=== PATIENT | female | born 1985 | race Caucasian/White ===

== ENCOUNTER 2023-01-02 09:06 | Day surgery (SDC) | payer BC, SELFPAY ==
[2023-01-02] VITALS (12 sets, daily range): BP systolic 102–123; BP diastolic 56–73; PULSE 81–121; RESP 16–18; TEMP 36.3–37.2; O2SAT 96–99; BMI 33.8; BMI 35.6
--- NOTE | 2023-01-02 09:56 | CRLHL7_ITS ---
For Patients: As a result of the 21st Century Cures Act, medical imaging exams and procedure reports are released immediately into your electronic medical record. You may view this report before your referring provider. If you have questions, please contact your health care provider. Indication: Right lower quadrant pain Technique: Volumetric multidetector CT images of the abdomen and pelvis were obtained after the administration of intravenous contrast. 91 cc Isovue 370 low osmolar intravenous contrast Comparison: None available. Findings: There is bibasilar atelectasis and parenchymal scar. The liver demonstrates minimal intrahepatic biliary ductal dilatation. There is no focal abnormality. The portal vein is patent. There is prior cholecystectomy. There is dilated common bile duct commensurate with reservoir changes. The spleen is normal in enhancement and size. The stomach and duodenum are grossly unremarkable. The pancreas is normal in enhancement without significant atrophy. The adrenal glands are unremarkable. The kidneys demonstrate preserved corticomedullary differentiation without evidence of obstructive uropathy. There are fluid-filled loops of mid to distal small bowel with mild to moderate mucosal hyperemia. There is fluid appreciated within the proximal colon with overall decompressed appearance of the distal colon. The appendix demonstrates no significant fluid distension and measures 6.3 millimeters. There is no significant periappendiceal inflammation; however, there is minimal inflammatory change seen adjacent to the cecum. There are extensive reactive central mesenteric and retroperitoneal lymph nodes. The aorta is nonaneurysmal. There is no significant atherosclerotic disease appreciated. The solid pelvic viscera are grossly unremarkable. There is no free fluid or free air. There is a fat containing umbilical hernia. The lumbar vertebral body heights are grossly maintained with mild straightening of the normal lumbar lordosis. There is no significant spondylolisthesis or displaced fracture. Impression: Demonstration of fluid-filled small bowel with mucosal hyperemia as well as fluid distension of the proximal colon which may represent infectious and/or inflammatory enterocolitis changes. There is demonstration of a somewhat equivocal appearing appendix with no evidence of fluid distension or significant thickening with trace inflammatory change which may be secondary from adjacent inflammatory changes of the bowel. An early appendicitis may be difficult to exclude. Extensive reactive central mesenteric and retroperitoneal lymph nodes. Findings discussed with Dr. Teague at 11:22 a.m. 01/02/[address] note that all CT scans at this facility use dose modulation, iterative reconstruction, and/or weight-based dosing when appropriate to reduce radiation dose to as low as reasonably achievable. Dictated by Jony Daniels MD @ 01/02/2023 11:23:05 AM (Electronically Signed)
--- NOTE | 2023-01-02 09:58 | ED_ITS ---
HPI - Abdominal Pain General Chief Complaint: Abdominal Pain Stated Complaint: Lower abdominal pain Time Seen by Provider: 01/02/23 09:51 History of Present Illness HPI narrative: This 37-year-old female comes in reporting abdominal pain for the past 3 or 4 days. She states that the pain is constant and is now localized in the right lower quadrant. She has some nausea and vomiting and has lost her appetite. She does not report any fevers. Her pain is worse with any kind of movement and somewhat relieved by remaining still. Related Data Previous Rx's Medication Instructions Recorded lorazepam 1 mg tablet 0.5 mg PO BID PRN anxiety #90 tabs 05/30/22 escitalopram oxalate 20 mg tablet 20 mg PO QDAY #90 tabs 12/25/22 naproxen 500 mg tablet 500 mg PO BID #180 tabs 12/25/22 valacyclovir 1 gram tablet 1,000 mg PO TID 5 days #30 tabs 12/25/22 zolpidem 5 mg tablet 5 mg PO QHS PRN insomnia #90 tabs 12/25/22 Allergies Allergy/AdvReac Type Severity Reaction Status Date / Time diphenhydramine Allergy Intermediate Rash Verified 01/02/23 10:24 [From Benadryl] bupropion AdvReac Intermediate Nausea Verified 01/02/23 10:24 Review of Systems Status of ROS Reports: 10 or more systems reviewed and unremarkable except as noted in History and below Narrative Constitutional: No fevers, no weight gain or loss. Eyes: No discharge. No vision changes. HENT: No congestion, no sore throat, no ear pain. Cardiovascular: No chest pain, no palpitations. Respiratory: No shortness of breath, no wheezes, no cough. Gastrointestinal: Right lower quadrant abdominal pain as described above. Genitourinary: No dysuria, no hematuria. Musculoskeletal: Normal range of motion. Skin: No rashes, no pruritis. Neurological: No dizziness, weakness, sensory change, speech change. Endo/Heme/Allergies: No bruising or bleeding. No polydipsia. Pysch: no suicidality, no anxiety, no insomnia. All other systems reviewed and are negative. [facility] Medical History (Updated 01/02/23 @ 13:57 by Rudy Teague MD) Cystic fibrosis carrier ?Z14.1 - Cystic fibrosis carrier (ICD-10) AAMIR (generalized anxiety disorder) ?F41.1 - Generalized anxiety disorder (ICD-10) History of anorexia nervosa ?Z86.59 - Personal history of other mental and behavioral disorders (ICD-10) History of bulimia nervosa ?Z86.59 - Personal history of other mental and behavioral disorders (ICD-10) History of herpes genitalis ?Z86.19 - Personal history of other infectious and parasitic diseases (ICD- 10) History of spontaneous (2018) ?Z87.59 - Personal history of other complications of , childbirth and the puerperium (ICD-10) Insomnia ?G47.00 - Insomnia, unspecified (ICD-10) Major depression, recurrent ?F33.9 - Major depressive disorder, recurrent, unspecified (ICD-10) Meniere's disease ?H81.09 - Meniere's disease, unspecified ear (ICD-10) Menorrhagia ?N92.0 - Excessive and frequent menstruation with regular cycle (ICD-10) PTSD (post-traumatic stress disorder) ?F43.10 - Post-traumatic stress disorder, unspecified (ICD-10) Surgical History (Updated 05/30/22 @ 22:14 by Alexander Vasquez MD) History of cholecystectomy (2013) ?Z90.49 - Acquired absence of other specified parts of digestive tract (ICD- 10) History of third molar tooth extraction (2004) ?K08.409 - Partial loss of teeth, unspecified cause, unspecified class (ICD- 10) History of tooth extraction (1998) ?K08.409 - Partial loss of teeth, unspecified cause, unspecified class (ICD- 10) History of vacuum extraction assisted delivery (2013) ?Z87.59 - Personal history of other complications of , childbirth and the puerperium (ICD-10) History of vaginal delivery (2015) Social History (Updated 12/31/22 @ 01:01 by Alexander Vasquez MD) Narrative: , three kids, Non-smoker Smoking Status: Former smoker Do you use any of these nicotine containing products: None Second hand tobacco smoke exposure: No How often do you have a drink containing alcohol: never How often do you have six or more drinks on one occasion: Never AUDIT-C Alcohol total score: 0 Non-prescribed substance use: denies use Little interest or pleasure in doing things: not at all Feeling down, depressed, or hopeless: not at all service: No Exam Narrative: Exam Narrative: Constitutional: Well-developed, well-nourished, no acute distress. HEENT: Normocephalic, atraumatic. Neck: Normal range of motion. Nontender. Supple. Heart: Regular. No murmurs. Normal rate. Intact distal pulses. Lungs: Clear to auscultation. No chest discomfort. No wheezes, rhonchi, or rales. Abdomen: Tenderness localized in the right lower quadrant. Rovsing's sign is positive. Rebound tenderness is present. Genitalia: Deferred. Back: No midline tenderness. Normal range of motion. Extremities: Normal range of motion. No injury. Skin: Intact. No rash. Warm. No erythema or pallor. Neurologic: No altered sensation. No weakness. Alert and oriented. Psychiatric: No suicidality. No anxiety or depression. No insomnia. Nursing notes and vitals signs are reviewed. Const: Vital Signs, click to edit/add: Vital Signs - 24 hr 01/02/23 09:15 Temperature 97.4 F L Pulse Rate [Left P ulse Oximeter] 121 H Respiratory Rate 18 Blood Pressure [Le ft Upper Arm] 116/73 Pulse Oximetry 99 Oxygen Delivery Me thod Room Air Course Vital Signs Vital signs: Initial Vital Signs Temperature 97.4 F L 01/02/23 09:15 Temperature Source Temporal Artery Scan 01/02/23 09:15 Pulse Rate 121 H 01/02/23 09:15 Pulse Rhythm Regular 01/02/23 09:15 Pulse Strength 3+ Normal 01/02/23 09:15 Respiratory Rate 18 01/02/23 09:15 Blood Pressure 116/73 01/02/23 09:15 Blood Pressure Mean 87 01/02/23 09:15 Blood Pressure Position Sitting 01/02/23 09:15 Pulse Oximetry 99 01/02/23 09:15 Oxygen Delivery Method Room Air 01/02/23 09:15 Vital Signs Temperature 97.4 F L 01/02/23 09:15 Pulse Rate 121 H 01/02/23 09:15 Respiratory Rate 18 01/02/23 09:15 Blood Pressure 116/73 01/02/23 09:15 Pulse Oximetry 99 01/02/23 09:15 Oxygen Delivery Method Room Air 01/02/23 09:15 Temperature 97.4 F L 01/02/23 09:15 Pulse Rate 121 H 01/02/23 09:15 Respiratory Rate 18 01/02/23 09:15 Blood Pressure 116/73 01/02/23 09:15 Pulse Oximetry 99 01/02/23 09:15 Oxygen Delivery Method Room Air 01/02/23 09:15 MDM - Abdominal Pain MDM Narrative Medical decision making narrative: This 37-year-old female has persistent right lower quadrant abdominal pain. She had enough signs and symptoms suspicious for appendicitis to where a CT scan of the abdomen and pelvis was ordered. This returns with a normal appearing appendix but adjacent to some reactive small-bowel with lymphadenopathy. Her white count returns a bit elevated. The patient did receive IV doses of Dilaudid and Zofran which brought some relief to her symptoms. I did consult with the surgeon on-call, Dr. Christy, who also examined the patient and reviewed images and discussed this with radiologist. It does appear to be an infectious or inflammatory small-bowel possibly due to Crohn's or some infectious process. I did speak with the hospitalist injection specialist who agreed to her admission. The patient did receive IV doses of Rocephin and Flagyl. A stool cultures also ordered with results pending. Lab Data Labs: Lab Results 01/02/23 Range/Units 09:50 WBC 14.02 H (4.50-11.00) K/uL RBC 5.03 (4.00-5.20) m/uL Hgb 14.4 (12.0-16.0) gm/dL Hct 42.6 (33.0-51.0) % MCV 85 (80-100) fL MCH 29 (26-34) pg MCHC 34 (32-36) gm/dL RDW Coeff of Ar 11.9 (11.5-15.5) % Plt Count 266 (140-440) K/uL Neut % (Auto) 85.8 H (42.0-72.0) % Lymph % (Auto) 5.1 L (20-44) % [place] % (Auto) 8.8 (0.0-11.0) % Eos % (Auto) 0.1 (0.0-7.0) % Baso % (Auto) 0.1 (0.0-3.0) % Neut # (Auto) 12.00 H (1.7-7.0) K/uL Lymph # (Auto) 0.70 L (0.90-2.90) K/uL [place] # (Auto) 1.20 H (0.00-0.90) K/UL Eos # (Auto) 0.00 (0.00-0.50) K/uL Baso # (Auto) 0.00 (0.00-0.30) K/uL Sodium 137 (135-149) mmol/L Potassium 3.5 L (3.6-5.1) mmol/L Chloride 105 (96-114) mmol/L Carbon Dioxide 24 (20-32) mmol/L BUN 15 (5-24) mg/dL Creatinine 0.6 (0.5-1.5) mg/dL Estimated Creat Clear 103.51 Estimated GFR 120 ml/min Glucose 107 (60-115) mg/dL Calcium 8.6 (8.4-10.6) mg/dL Imaging Data CT scan - abdomen: Radiologist's impression: Demonstration of fluid-filled small bowel with mucosal hyperemia as well as fluid distension of the proximal colon which may represent infectious and/or inflammatory enterocolitis changes. There is demonstration of a somewhat equivocal appearing appendix with no evidence of fluid distension or significant thickening with trace inflammatory change which may be secondary from adjacent inflammatory changes of the bowel. An early appendicitis may be difficult to exclude. Extensive reactive central mesenteric and retroperitoneal lymph nodes. Discharge Plan Discharge Clinical Impression: Colitis Patient Disposition: Admitted As Inpatient Condition: Unchanged Prescriptions: No Action lorazepam 1 mg tablet 0.5 mg PO BID PRN (Reason: anxiety) Qty: 90 1RF escitalopram oxalate 20 mg tablet 20 mg PO QDAY Qty: 90 3RF zolpidem 5 mg tablet 5 mg PO QHS PRN (Reason: insomnia) Qty: 90 1RF naproxen 500 mg tablet 500 mg PO BID Qty: 180 3RF valacyclovir 1 gram tablet 1,000 mg PO TID 5 Days Qty: 30 5RF Follow Up/Referrals: Alexander Vasquez MD [Primary Care Provider] -
[2023-01-02] MEDS: 0.9 % SODIUM CHLORIDE 500 ML 500 ML IV (10:08)
[2023-01-02] MEDS: ONDANSETRON 2 MG/ML inj 4 MG IVP (10:08)
[2023-01-02] MEDS: HYDROmorphone 0.5 mg/0.5 ml inj IVP ×3 (10:08→16:52)
[2023-01-02 10:19] LABS: Basophils Percent Auto 0.1 % (0.0-3.0); Eosinophils Percent Auto 0.1 % (0.0-7.0); Hematocrit 42.6 % (33.0-51.0); Hemoglobin* 14.4 gm/dL (12.0-16.0); Immature Granulocytes Pct Auto 0.1 %; Lymphocytes Percent Auto 5.1 % (20-44); Mean Corpuscular HGB Conc 34 gm/dL (32-36); Mean Corpuscular Hemoglobin 29 pg (26-34); Mean Corpuscular Volume 85 fL (80-100); Monocytes Percent Auto 8.8 % (0.0-11.0); Neutrophils Percent Auto 85.8 % (42.0-72.0); Platelet Count* 266 K/uL (140-440); RDW Coefficient of Variation % 11.9 % (11.5-15.5); Red Blood Count 5.03 m/uL (4.00-5.20); White Blood Count* 14.02 K/uL (4.50-11.00)
[2023-01-02 10:23] LABS: Slide Review Reflex No
[2023-01-02 10:42] LABS: Chloride* 105 mmol/L (96-114); Potassium* 3.5 mmol/L (3.6-5.1); Sodium* 137 mmol/L (135-149)
[2023-01-02 10:45] LABS: Blood Urea Nitrogen* 15 mg/dL (5-24); Carbon Dioxide* 24 mmol/L (20-32); Creatinine* 0.6 mg/dL (0.5-1.5); Est. Creatinine Clearance* 103.51; Estimated Glomerular Filt Rate 120 ml/min
[2023-01-02 10:46] LABS: Calcium* 8.6 mg/dL (8.4-10.6); Glucose* 107 mg/dL (60-115)
--- NOTE | 2023-01-02 13:57 | P.GSCN_ITS ---
History of Present Illness Consult details Date Seen: 01/02/23 Consult date: 01/02/23 Narrative: The patient is a 37-year-old female who presents to the emergency department today with abdominal pain. She states that last week several of her children were ill with gastroenteritis. She started vomiting on Saturday or 6 days ago and then began having diarrhea 4 days ago. On Saturday she developed abdominal pain in her central abdomen. This was 4 days ago. Today this pain is more centered in the right flank. She has not had anything like this before. It is worse with movement. No fevers. She has no known diagnosis of inflammatory bowel disease. She has not had any blood with her bowel movements. [facility] Medical History (Updated 01/02/23 @ 14:02 by Preethi Christy MD) Cystic fibrosis carrier ?Z14.1 - Cystic fibrosis carrier (ICD-10) AAMIR (generalized anxiety disorder) ?F41.1 - Generalized anxiety disorder (ICD-10) History of anorexia nervosa ?Z86.59 - Personal history of other mental and behavioral disorders (ICD-10) History of bulimia nervosa ?Z86.59 - Personal history of other mental and behavioral disorders (ICD-10) History of herpes genitalis ?Z86.19 - Personal history of other infectious and parasitic diseases (ICD- 10) History of spontaneous (2017) ?Z87.59 - Personal history of other complications of , childbirth and the puerperium (ICD-10) Insomnia ?G47.00 - Insomnia, unspecified (ICD-10) Major depression, recurrent ?F33.9 - Major depressive disorder, recurrent, unspecified (ICD-10) Meniere's disease ?H81.09 - Meniere's disease, unspecified ear (ICD-10) Menorrhagia ?N92.0 - Excessive and frequent menstruation with regular cycle (ICD-10) PTSD (post-traumatic stress disorder) ?F43.10 - Post-traumatic stress disorder, unspecified (ICD-10) Surgical History (Updated 05/30/22 @ 22:14 by Alexander Vasquez MD) History of cholecystectomy (2013) ?Z90.49 - Acquired absence of other specified parts of digestive tract (ICD- 10) History of third molar tooth extraction (2004) ?K08.409 - Partial loss of teeth, unspecified cause, unspecified class (ICD- 10) History of tooth extraction (1998) ?K08.409 - Partial loss of teeth, unspecified cause, unspecified class (ICD- 10) History of vacuum extraction assisted delivery (2013) ?Z87.59 - Personal history of other complications of , childbirth and the puerperium (ICD-10) History of vaginal delivery (2015) Social History (Updated 01/02/23 @ 14:00 by Preethi Christy MD) Narrative: , three kids, Non-smoker. She drinks alcohol rarely. She works as an business analyst project manager. Smoking Status: Former smoker Do you use any of these nicotine containing products: None Second hand tobacco smoke exposure: No How often do you have a drink containing alcohol: never How often do you have six or more drinks on one occasion: Never AUDIT-C Alcohol total score: 0 Non-prescribed substance use: denies use Little interest or pleasure in doing things: not at all Feeling down, depressed, or hopeless: not at all service: No Meds Home Medications and Allergies Allergies Allergy/AdvReac Type Severity Reaction Status Date / Time diphenhydramine Allergy Intermediate Rash Verified 01/02/23 10:24 [From Benadryl] bupropion AdvReac Intermediate Nausea Verified 01/02/23 10:24 Exam Narrative: Exam Narrative: General: Patient appears flushed, however in no acute distress CV: Mildly tachycardic with a heart rate of 100. She is regular. Respiratory: Breathing nonlabored on room air Abdomen: Protuberant. No scars. Small umbilical hernia noted. Is tender on the right mid abdomen with guarding. Const: Vital Signs, click to edit/add: Vital Signs - 24 hr 01/02/23 09:15 Temperature 97.4 F L Pulse Rate [Left P ulse Oximeter] 121 H Respiratory Rate 18 Blood Pressure [Le ft Upper Arm] 116/73 Pulse Oximetry 99 Oxygen Delivery Me thod Room Air Results Labs Labs: Abnormal lab results 01/02/23 Range/Units 09:50 WBC 14.02 H (4.50-11.00) K/uL Neut % (Auto) 85.8 H (42.0-72.0) % Lymph % (Auto) 5.1 L (20-44) % Neut # (Auto) 12.00 H (1.7-7.0) K/uL Lymph # (Auto) 0.70 L (0.90-2.90) K/uL [place] # (Auto) 1.20 H (0.00-0.90) K/UL Potassium 3.5 L (3.6-5.1) mmol/L Diabetes panel 01/02/23 Range/Units 09:50 Sodium 137 (135-149) mmol/L Potassium 3.5 L (3.6-5.1) mmol/L Chloride 105 (96-114) mmol/L Carbon Dioxide 24 (20-32) mmol/L BUN 15 (5-24) mg/dL Creatinine 0.6 (0.5-1.5) mg/dL Glucose 107 (60-115) mg/dL Calcium 8.6 (8.4-10.6) mg/dL Calcium panel 01/02/23 Range/Units 09:50 Calcium 8.6 (8.4-10.6) mg/dL Pituitary panel 01/02/23 Range/Units 09:50 Sodium 137 (135-149) mmol/L Potassium 3.5 L (3.6-5.1) mmol/L Chloride 105 (96-114) mmol/L Carbon Dioxide 24 (20-32) mmol/L BUN 15 (5-24) mg/dL Creatinine 0.6 (0.5-1.5) mg/dL Glucose 107 (60-115) mg/dL Calcium 8.6 (8.4-10.6) mg/dL Adrenal panel 01/02/23 Range/Units 09:50 Sodium 137 (135-149) mmol/L Potassium 3.5 L (3.6-5.1) mmol/L Chloride 105 (96-114) mmol/L Carbon Dioxide 24 (20-32) mmol/L BUN 15 (5-24) mg/dL Creatinine 0.6 (0.5-1.5) mg/dL Glucose 107 (60-115) mg/dL Calcium 8.6 (8.4-10.6) mg/dL All other labs normal. Imaging Abdomen CT scan report/results: report reviewed and image reviewed Additional studies: CT scan of the abdomen was reviewed by myself and with the radiologist. The patient has transmural thickening of the distal small bowel as well as extensive retroperitoneal adenopathy. Her appendix is located in the area where she is having discomfort and there is some mild fluid around this, however it is not dilated. There is no appendicolith and there is also air in the lumen. While early appendicitis cannot be excluded, symptoms appear more consistent with enterocolitis or inflammatory colitis Assessment and Plan Assessment and plan (1) Colitis: Status: Acute (2) Enteritis: Status: Acute (3) Diarrhea: Status: Acute Plan The patient is a 37-year-old female with nausea, vomiting, diarrhea and abdominal pain. On exam she has tenderness on the right side at the location of the appendix, however based on her history it seems more consistent with enteritis verses possibly even inflammatory bowel disease, particularly given the degree of adenopathy which, in the setting appendicitis is usually located in the right lower abdomen. There is no appendicolith seen on imaging. I discussed the findings with the patient and her . Because she is non perforated, does not have peritonitis and is not septic, I think it is reasonable to admit the patient, obtain stool cultures and start her on antibiotics. If she does have appendicitis, non operative management has been proven to be safe in patients under these conditions. She therefore may resolve with medical management. If her symptoms worsen, then we will re- evaluate the situation and consider either repeat imaging or diagnostic laparoscopy with plan for appendectomy. If she improves then she could be discharged home on oral antibiotics. The patient is agreeable with this plan.
[2023-01-02] MEDS: cefTRIAXone 1 GM in 0.9 % SODIUM CHLORIDE Mini-bag 100 ML IVPB (14:04)
[2023-01-02 14:20] LABS: PCR FLU A Negative PCR FLU A (Negative); PCR FLU B Negative PCR FLU B (Negative); PCR RSV Negative PCR RSV (Negative)
[2023-01-02 14:28] LABS: SARS PCR* Negative SARS-CoV-2 (Negative)
[2023-01-02] MEDS: metroNIDAZOLE 500 MG/100 ML PIGGYBACK 100 MG IVPB (15:05)
[2023-01-02] MEDS: ACETAMINOPHEN 325 MG TABLET 650 MG PO ×2 (16:52→20:50)
[2023-01-02] MEDS: ESCITALOPRAM 10 MG TABLET 20 MG PO (16:52)
--- NOTE | 2023-01-02 18:28 | PM.IMHP1 ---
Hospitalist- H&P: HPI History of Present Illness Time Seen by Provider: 16:00 Date Seen: 01/02/23 Chief complaint: Lower abdominal pain Narrative: Sera Hurst is a 37 year old woman who presents for assessment of abdominal pain. Patient was in her usual state of health until this past Saturday, 5 days ago. That time were stomach started to feel queasy. Had some nausea without vomiting. Has had intermittent vomiting since. Developed diarrhea on Saturday. Abdominal pain became very pronounced this morning, did not resolve, and thus she presents for further assessment. Denies fevers, rigors, diaphoresis. Denies hematochezia, melena, hematemesis. No recent night sweats or weight loss. Noteworthy is the fact that all 3 of her children earlier last week had ?the stomach flu. ? Children had nausea, vomiting and diarrhea as well. Review of Systems Status of ROS: Reports: 10 or more systems reviewed and unremarkable except as noted in History and below Narrative: Generally healthy. No recent trauma, injury, or travel. No other recent illnesses. Denies chest heaviness, pressure, tightness, or pain. Denies dyspnea at rest, paroxysmal nocturnal dyspnea, orthopnea, or cough. Denies upper respiratory tract or lower respiratory tract symptoms. Denies syncope or near-syncope. Denies orthostasis. Denies palpitations or chest fluttering. No claudication. Denies dysuria, urgency, frequency, hematuria. Denies polyuria, polydipsia, polyphagia. No focal motor neurologic deficits. 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 Lives with her and [address] Alexander Vasquez is her primary care physician. [facility] Medical History Cystic fibrosis carrier ?Z14.1 - Cystic fibrosis carrier (ICD-10) AAMIR (generalized anxiety disorder) ?F41.1 - Generalized anxiety disorder (ICD-10) History of anorexia nervosa ?Z86.59 - Personal history of other mental and behavioral disorders (ICD-10) History of bulimia nervosa ?Z86.59 - Personal history of other mental and behavioral disorders (ICD-10) History of herpes genitalis ?Z86.19 - Personal history of other infectious and parasitic diseases (ICD-10) History of spontaneous (2018) ?Z87.59 - Personal history of other complications of , childbirth and the puerperium (ICD-10) Insomnia ?G47.00 - Insomnia, unspecified (ICD-10) Major depression, recurrent ?F33.9 - Major depressive disorder, recurrent, unspecified (ICD-10) Meniere's disease ?H81.09 - Meniere's disease, unspecified ear (ICD-10) Menorrhagia ?N92.0 - Excessive and frequent menstruation with regular cycle (ICD-10) PTSD (post-traumatic stress disorder) ?F43.10 - Post-traumatic stress disorder, unspecified (ICD-10) Surgical History History of cholecystectomy (2013) ?Z90.49 - Acquired absence of other specified parts of digestive tract (ICD-10) History of third molar tooth extraction (2004) ?K08.409 - Partial loss of teeth, unspecified cause, unspecified class (ICD-10) History of tooth extraction (1998) ?K08.409 - Partial loss of teeth, unspecified cause, unspecified class (ICD-10) History of vacuum extraction assisted delivery (2013) ?Z87.59 - Personal history of other complications of , childbirth and the puerperium (ICD-10) History of vaginal delivery (2015) Social History Narrative: , three kids, Non-smoker. She drinks alcohol rarely. She works as an visual presentation manager. Highest level of school completed/degree received: some college, no degree Smoking Status: Former smoker Do you use any of these nicotine containing products: None Second hand tobacco smoke exposure: No How often do you have a drink containing alcohol: never How often do you have six or more drinks on one occasion: Never AUDIT-C Alcohol total score: 0 Non-prescribed substance use: denies use Caffeine: Yes () Little interest or pleasure in doing things: not at all Feeling down, depressed, or hopeless: not at all service: Yes Meds Home Medications and Allergies Home Medications Medication Instructions Recorded Confirmed Type valacyclovir 1 gram tablet 2,000 mg PO TID 01/02/23 01/02/23 History zolpidem 5 mg tablet 5 mg PO HS PRN insomnia 01/02/23 01/02/23 History Home Medication Comments: Additional medications: 1. Lorazepam 1 mg tab, 1/2 tab p.o. at at bedtime and 1/2 tab daily p.r.n. which he orally ever uses. 2. Escitalopram 20 mg once daily 3. Naproxen 500 mg twice daily usually around the time of her menses. Allergies Allergy/AdvReac Type Severity Reaction Status Date / Time diphenhydramine Allergy Intermediate Rash Verified 01/02/23 10:24 [From Benadryl] bupropion AdvReac Intermediate Nausea Verified 01/02/23 10:24 Exam Narrative: Exam Narrative: By the time I see her she appears comfortable. No acute distress. Alert, oriented to self, place, time, situation. Friendly, cooperative, articulate. Mood and affect are congruent. Vision and hearing are grossly normal. No icterus or jaundice. Normal tympanic membranes. Midline nasal septum. Buccal mucosa is moist. Dentition in good repair. Neck is supple. Midline trachea. No adenopathy. Lungs are clear to auscultation, without wheezing, rhonchi, or rales. Does not have CVA tenderness. Regular heart rate and rhythm. Normal S1-S2. No murmur, gallop, or rub. Abdomen with active bowel sounds, soft. Subjective discomfort to palpation left lower quadrant. Independent transfer, station, gait. No focal motor neurologic deficits. No peripheral edema. Capillary refill less than 3 seconds upper and lower extremities. Const: Vital Signs, click to edit/add: Vital Signs - 24 hr 01/02/23 09:15 01/02/23 09:10 01/02/23 10:05 Temperature 97.4 F L 97.4 F L Pulse Rate [Left P ulse Oximeter] 121 H 121 H Pulse Rate [Right Pulse Oximeter] Respiratory Rate 18 18 18 Blood Pressure [Le ft Arm] Blood Pressure [Le ft Upper Arm] 116/73 116/73 117/69 Pulse Oximetry 99 99 99 Oxygen Delivery Me thod Room Air Room Air Room Air 01/02/23 10:38 01/02/23 11:00 01/02/23 11:30 Temperature Pulse Rate [Left P ulse Oximeter] Pulse Rate [Right Pulse Oximeter] Respiratory Rate 18 18 18 Blood Pressure [Le ft Arm] Blood Pressure [Le ft Upper Arm] 116/58 L 112/56 L 114/58 L Pulse Oximetry 99 99 99 Oxygen Delivery Me thod Room Air Room Air Room Air 01/02/23 12:00 01/02/23 12:30 01/02/23 13:00 Temperature Pulse Rate [Left P ulse Oximeter] Pulse Rate [Right Pulse Oximeter] Respiratory Rate 18 18 18 Blood Pressure [Le ft Arm] Blood Pressure [Le ft Upper Arm] 108/60 113/64 123/64 Pulse Oximetry 99 99 99 Oxygen Delivery Me thod Room Air Room Air Room Air 01/02/23 15:10 Temperature 98.4 F Pulse Rate [Left P ulse Oximeter] Pulse Rate [Right Pulse Oximeter] 92 Respiratory Rate 16 Blood Pressure [Le ft Arm] 108/59 L Blood Pressure [Le ft Upper Arm] Pulse Oximetry 96 Oxygen Delivery Me thod Room Air Hospitalist - H&P: Result Labs Labs: Short CBC 01/02/23 Range/Units 09:50 WBC 14.02 H (4.50-11.00) K/uL Hgb 14.4 (12.0-16.0) gm/dL Hct 42.6 (33.0-51.0) % Plt Count 266 (140-440) K/uL BMP 01/02/23 09:50 Sodium 137 Potassium 3.5 L Chloride 105 Carbon Dioxide 24 BUN 15 Creatinine 0.6 Glucose [address] scan - abdomen: Attestation: I have reviewed the pertinent imaging results. Radiologist's impression: Demonstration of fluid-filled small bowel with mucosal hyperemia as well as fluid distension of the proximal colon which may represent infectious and/or inflammatory enterocolitis changes. There is demonstration of a somewhat equivocal appearing appendix with no evidence of fluid distension or significant thickening with trace inflammatory change which may be secondary from adjacent inflammatory changes of the bowel. An early appendicitis may be difficult to exclude. Extensive reactive central mesenteric and retroperitoneal lymph nodes. Assessment and Plan Assessment and plan (1) Enteritis: Status: Acute (2) Colitis: Status: Acute (3) Diarrhea: Status: Acute Plan 1. Explained to the patient how most likely her condition is related to the same infection that her children recently had. As such we anticipate that this is most likely caused by a virus. Nevertheless the severity of her symptoms warrants that she be admitted for observation at this time. 2. Supportive measures with IV fluids, analgesics, antiemetics p.r.n.. 3. Continue with other supportive efforts. 4. Daily weight, orthostatic blood pressures and pulses. 5. Reassess labs. 6. Patient agreeable to above stated plans and recommendations
--- NOTE | 2023-01-02 18:59 | PC.NURSE ---
End of shift nursing note: Pt admit at 1445 from ED. Pt ambulatory from ED EC to scale to bed. Ind w/o device at baseline. Pt c/o 5/10 pain to RLQ of abd. Pt voided x2 since admission, still requiring stool sample, pt aware, hat in place in toilet. Vitals stable, on RA. Heating pad applied to abd with effectiveness. Scheduled meds admin w/ water, PRN IV Dilaudid admin for pain, spoke to pt about transitioning to PO when able for pain control PRN. YUDI peña applied BLE, pt wanted to hold off on SCDs for now, up to bathroom ind, ankle pumps encouraged while in bed. On clear liquid diet currently w/ advance as tolerated, pt starting slow as recent N/V prior to admission. IV to R AC patent, Flagyl admin upon admission per order, saline locked after. Call light within pt reach, able to verbalize all needs appropriately. ?
[2023-01-02] MEDS: POTASSIUM CHLORIDE 10 MEQ CAPSULE ER 40 MEQ PO (19:03)
[2023-01-02] MEDS: OXYCODONE 5 MG TABLET PO (20:49)
[2023-01-02] MEDS: SODIUM CHLORIDE 0.9 % (FLUSH) 10 ML SYRINGE 5 ML IVF (21:06)
[2023-01-03] VITALS (22 sets, daily range): BP systolic 83–116; BP diastolic 52–89; PULSE 49–94; RESP 12–16; TEMP 36.4–37.2; O2SAT 88–100
[2023-01-03] MEDS: ACETAMINOPHEN 325 MG TABLET 650 MG PO ×3 (02:36→21:17)
[2023-01-03] MEDS: OXYCODONE 5 MG TABLET PO ×4 (02:38→14:59)
[2023-01-03 07:51] LABS: Lactate* 0.9 mmol/L (0.5-1.9)
[2023-01-03 07:58] LABS: Basophils Percent Auto 0.2 % (0.0-3.0); Eosinophils Percent Auto 0.9 % (0.0-7.0); Hematocrit 41.1 % (33.0-51.0); Hemoglobin* 13.4 gm/dL (12.0-16.0); Lymphocytes Percent Auto 29.7 % (20-44); Mean Corpuscular HGB Conc 33 gm/dL (32-36); Mean Corpuscular Hemoglobin 29 pg (26-34); Mean Corpuscular Volume 87 fL (80-100); Monocytes Percent Auto 13.3 % (0.0-11.0); Neutrophils Percent Auto 55.9 % (42.0-72.0); Platelet Count* 232 K/uL (140-440); RDW Coefficient of Variation % 12.1 % (11.5-15.5); White Blood Count* 4.37 K/uL (4.50-11.00)
[2023-01-03 08:04] LABS: Slide Review Reflex Yes
[2023-01-03 08:05] LABS: Slide Review Acceptable Review (Acceptable)
[2023-01-03 08:15] LABS: Chloride* 106 mmol/L (96-114); Potassium* 3.9 mmol/L (3.6-5.1); Sodium* 137 mmol/L (135-149)
[2023-01-03 08:17] LABS: Creatinine* 0.5 mg/dL (0.5-1.5); Est. Creatinine Clearance* 124.21; Estimated Glomerular Filt Rate 125 ml/min
[2023-01-03 08:18] LABS: Blood Urea Nitrogen* 10 mg/dL (5-24); Calcium* 8.4 mg/dL (8.4-10.6); Carbon Dioxide* 28 mmol/L (20-32); Glucose* 88 mg/dL (60-115); Phosphorus* 2.3 mg/dL (2.5-4.5)
[2023-01-03 08:19] LABS: Magnesium* 2.2 mg/dL (1.5-2.6)
[2023-01-03] MEDS: SODIUM CHLORIDE 0.9 % (FLUSH) 10 ML SYRINGE 5 ML IVF (09:11)
--- NOTE | 2023-01-03 09:38 | PM.GSPN ---
Subjective Subjective Date Seen: 01/03/23 Interval history: Sera is feeling much better. Has not had further diarrhea. No nausea. Pain is down to a 3 though she has gotten pain medications. No fevers. Eating breakfast without issue. Exam Narrative: Exam Narrative: General: NAD Abdomen: soft, mildly tender on the right midabdomen still. No guarding or rebound. Const: Vital Signs, click to edit/add: Vital Signs - 24 hr 01/02/23 10:05 01/02/23 10:38 01/02/23 11:00 Temperature Pulse Rate [Right Pulse Oximeter] Respiratory Rate 18 18 18 Blood Pressure [Le ft Arm] Blood Pressure [Le ft Upper Arm] 117/69 116/58 L 112/56 L Pulse Oximetry 99 99 99 Oxygen Delivery Me thod Room Air Room Air Room Air 01/02/23 11:30 01/02/23 12:00 01/02/23 12:30 Temperature Pulse Rate [Right Pulse Oximeter] Respiratory Rate 18 18 18 Blood Pressure [Le ft Arm] Blood Pressure [Le ft Upper Arm] 114/58 L 108/60 113/64 Pulse Oximetry 99 99 99 Oxygen Delivery De thod Room Air Room Air Room Air 01/02/23 13:00 01/02/23 15:10 01/02/23 20:45 Temperature 98.4 F 98.9 F Pulse Rate [Right Pulse Oximeter] 92 81 Respiratory Rate 18 16 16 Blood Pressure [Le ft Arm] 108/59 L 102/62 Blood Pressure [Le ft Upper Arm] 123/64 Pulse Oximetry 99 96 96 Oxygen Delivery De thod Room Air Room Air 01/02/23 23:00 01/02/23 23:00 01/02/23 23:00 Temperature Pulse Rate [Right Pulse Oximeter] 81 Respiratory Rate 16 16 16 Blood Pressure [Le ft Arm] Blood Pressure [Le ft Upper Arm] Pulse Oximetry 96 Oxygen Delivery De thod Room Air Room Air 01/03/23 03:00 01/03/23 07:00 01/03/23 07:00 Temperature 98.2 F 97.9 F Pulse Rate [Right Pulse Oximeter] 68 64 Respiratory Rate 16 16 Blood Pressure [Le ft Arm] 107/62 89/67 L Blood Pressure [Le ft Upper Arm] Pulse Oximetry 96 99 99 Oxygen Delivery De thod Room Air Room Air Room Air Labs/Imaging Labs Labs: Wbc 4.3. from 12 Progress Note: A&P Assessment and plan (1) Enteritis: Status: Acute (2) Diarrhea: Status: Acute (3) Abdominal pain: Status: Acute Plan Sera is a 37-year-old female that is in the hospital with diarrhea, vomiting and CT findings of bowel thickening with right lower quadrant pain. The most likely culprit is enteritis as her family has recently been ill, however early appendicitis remains in the differential given her right-sided pain. -antibiotics were not continued overnight and the patient seems to have improved regardless. -she is now tolerating a diet. -I think it is reasonable to discharge her home. Since she has not been on antibiotics he is likely do not have to be continued, however consideration could be given for oral Cipro Flagyl for 1 week.
[2023-01-03] MEDS: ONDANSETRON ODT 4 MG TAB PO (11:05)
--- NOTE | 2023-01-03 11:24 | P.DS_ITS ---
DS: Providers Provider Date Seen: 01/03/23 Date of admission: 01/02/23 14:40 Primary care physician: Alexander Vasquez MD Admitting Clinician: Ollie Ellis MD Consults: General Surgery Attending Physician on discharge: Eveline Vargas MD Date of Discharge: 01/03/23 DS: Diagnosis Discharge Diagnosis (1) Enteritis: Status: Acute (2) Diarrhea: Status: Acute (3) Abdominal pain: Status: Acute DS: Summary Hospital Course Hospital Course: 37-year-old female, presented to the emergency room on 01/02 for right lower quadrant abdominal pain. CT exam in the emergency room exhibited enteritis without signs of acute appendicitis (of note, patient recently had children with GI illness). Sera improved throughout stay, was able to advance her diet. Time Spent with Patient Time attestation: Total time spent providing and/or coordinating discharge services: Exam Const: Vital Signs, click to edit/add: Vital Signs - 24 hr 01/02/23 11:30 01/02/23 12:00 01/02/23 12:30 Temperature Pulse Rate [Right Pulse Oximeter] Respiratory Rate 18 18 18 Blood Pressure [Le ft Arm] Blood Pressure [Le ft Upper Arm] 114/58 L 108/60 113/64 Pulse Oximetry 99 99 99 Oxygen Delivery Me thod Room Air Room Air Room Air 01/02/23 13:00 01/02/23 15:10 01/02/23 20:45 Temperature 98.4 F 98.9 F Pulse Rate [Right Pulse Oximeter] 92 81 Respiratory Rate 18 16 16 Blood Pressure [Le ft Arm] 108/59 L 102/62 Blood Pressure [Le ft Upper Arm] 123/64 Pulse Oximetry 99 96 96 Oxygen Delivery Me thod Room Air Room Air 01/02/23 23:00 01/02/23 23:00 01/02/23 23:00 Temperature Pulse Rate [Right Pulse Oximeter] 81 Respiratory Rate 16 16 16 Blood Pressure [Le ft Arm] Blood Pressure [Le ft Upper Arm] Pulse Oximetry 96 Oxygen Delivery Me thod Room Air Room Air 01/03/23 03:00 01/03/23 07:00 01/03/23 07:00 Temperature 98.2 F 97.9 F Pulse Rate [Right Pulse Oximeter] 68 64 Respiratory Rate 16 16 Blood Pressure [Le ft Arm] 107/62 89/67 L Blood Pressure [Le ft Upper Arm] Pulse Oximetry 96 99 99 Oxygen Delivery Me thod Room Air Room Air Room Air DS: Data Data Completed and Pending Labs on day of discharge: Labs from last 24 hours 01/03/23 01/02/23 07:45 13:08 WBC 4.37 L RBC 4.70 Hgb 13.4 Hct 41.1 MCV 87 MCH 29 MCHC 33 RDW Coeff of Ar 12.1 Plt Count 232 Neut % (Auto) 55.9 Lymph % (Auto) 29.7 [place] % (Auto) 13.3 H Eos % (Auto) 0.9 Baso % (Auto) 0.2 Neut # (Auto) 2.40 Lymph # (Auto) 1.30 [place] # (Auto) 0.60 Eos # (Auto) 0.00 Baso # (Auto) 0.00 Diff Slide Review Acceptable Review Sodium 137 Potassium 3.9 Chloride 106 Carbon Dioxide 28 BUN 10 Creatinine 0.5 Estimated Creat Clear 124.21 Estimated GFR 125 Glucose 88 Lactate 0.9 Calcium 8.4 Phosphorus 2.3 L Magnesium 2.2 SARS-CoV-2 (PCR) Negative SARS-CoV-2 Influenza Type A (PCR) Negative PCR FLU A Influenza Type B (PCR) Negative PCR FLU B RSV (PCR) Negative PCR RSV Discharge Plan Discharge Disposition: Home, Self-Care Date of Admission: 01/02/23 14:40 Attending Provider on Discharge: Eveline Vargas Consulting Providers: Preethi Christy Primary Care Provider: Alexander Vasquez Condition: Improved Anticipated Discharge Date/Time: 01/03/23 12:30 Discharge Medications: Continued lorazepam 1 mg tablet 0.5 mg PO BID PRN (Reason: anxiety) Qty: 90 1RF escitalopram oxalate 20 mg tablet 20 mg PO QDAY Qty: 90 3RF naproxen 500 mg tablet 500 mg PO BID Qty: 180 3RF valacyclovir 1 gram tablet 2,000 mg PO TID zolpidem 5 mg tablet 5 mg PO HS PRN (Reason: insomnia) Discharge Orders: Discharge Order (Routine); Ordered 01/03/23 Ordered By: Eveline Vargas Patient Education: Enteritis (DC) Additional Instructions: No work until Saturday, January 07 Activity Level: Activity as Tolerated and No strenuous activity Discharge Diet: Low Fiber Diet Detail: Low fiber, advance as tolerated Follow Up Appointments: Alexander Vasquez MD [Primary Care Provider] - (as needed) Forms: [employer] Info Instructions
--- NOTE | 2023-01-03 12:29 | CRLHL7_ITS ---
For Patients: As a result of the Century Cures Act, medical imaging exams and procedure reports are released immediately into your electronic medical record. You may view this report before your referring provider. If you have questions, please contact your health care provider. INDICATION: PERSISTENT AND WORSENING RLQ PAIN TECHNIQUE: CT abdomen and pelvis acquired with 91 cc Isovue 370 IV contrast. COMPARISON: CT previous day. FINDINGS: Lower chest: The visualized lower lungs are aerated. No pleural or pericardial effusion. ABDOMEN: Liver: Normal enhancement. No focal suspicious hepatic lesions. Gallbladder and biliary: Cholecystectomy. Normal caliber bile ducts. Spleen: Normal size and enhancement. Pancreas: Normal enhancement without peripancreatic inflammatory changes or ductal dilatation. Adrenal glands: Normal adrenal glands. Kidneys and ureters: Normal enhancement. No radio-opaque calculi. No hydroureteronephrosis. GI tract: The stomach is relatively decompressed. Normal caliber small and large bowel loops. Mild hyperemia the appendix with questionable adjacent minimal inflammatory stranding and measuring up to 10 millimeters wide. Vascular structures: Normal caliber abdominal aorta. Lymph nodes: Prominent periaortic lymph nodes do not meet criteria for enlargement. Peritoneum: Small amount of free fluid in the pelvis as well as trace amount of fluid along the right pericolic gutter. No free air or focal drainable fluid collections. PELVIS: Genitourinary system: Normal urinary bladder. Age-appropriate uterus and ovaries. SKELETAL STRUCTURES AND SOFT TISSUES: No suspicious lytic or blastic lesions. IMPRESSION: Mild hyperemia of the appendix with questionable adjacent minimal inflammatory stranding and measuring up to 10 millimeters wide. While findings are equivocal, this raises the possibility for acute appendicitis. Recommend correlation with laboratory values and dedicated localized physical exam. Please note that all CT scans at this facility use dose modulation, iterative reconstruction, and/or weight-based dosing when appropriate to reduce radiation dose to as low as reasonably achievable. Dictated by Alexander Dotson MD @ 01/03/2023 3:10:09 PM (Electronically Signed)
[2023-01-03] MEDS: PROMETHAZINE 25 MG/ML INJ 12.5 MG IVP (14:48)
--- NOTE | 2023-01-03 15:30 | PM.IMPN1 ---
Progress Note: A&P Assessment and plan (1) Abdominal pain: Problem details: - as symptoms have evolved, repeat imaging c/w acute appendicitis - patient aware, made NPO - reviewed with Dr. Christy of General Surgery Status: Acute Plan - plan per GS team Subjective Date Seen: 01/03/23 Interval history: Sera felt better this morning, began to advance her diet. She then noted more discomfort in her umbilicus and right lower quadrant, stopped passing flatus, and had an increase in her nausea. Repeat CT scan obtained, exhibiting more edema in the appendix. Exam Narrative: Exam Narrative: GEN: Alert HEENT: Normal external ears, EOMIs bilaterally, no scleral icterus CV: RRR, No concerning murmurs R: LCTA bilaterally without concerning wheezing, rales, or rhonchi Ab: Soft without significant distension, + tenderness to palpation in right lower quadrant with mild guarding, no rebound Ext: wwp, no concerning edema Skin: No concerning skin lesions or rashes on exposed skin Neuro: Nonfocal Psych: Appropriate Const: Vital Signs, click to edit/add: Vital Signs - 24 hr 01/02/23 20:45 01/02/23 23:00 01/02/23 23:00 Temperature 98.9 F Pulse Rate [Right Pulse Oximeter] 81 81 Respiratory Rate 16 16 16 Blood Pressure [Le ft Arm] 102/62 Pulse Oximetry 96 96 Oxygen Delivery Me thod Room Air 01/02/23 23:00 01/03/23 03:00 01/03/23 07:00 Temperature 98.2 F Pulse Rate [Right Pulse Oximeter] 68 Respiratory Rate 16 16 Blood Pressure [Le ft Arm] 107/62 Pulse Oximetry 96 99 Oxygen Delivery Me thod Room Air Room Air Room Air 01/03/23 07:00 01/03/23 11:00 01/03/23 12:19 Temperature 97.9 F 98.4 F 98.4 F Pulse Rate [Right Pulse Oximeter] 64 66 Respiratory Rate 16 16 16 Blood Pressure [Le ft Arm] 89/67 L 110/64 Pulse Oximetry 99 98 Oxygen Delivery Me thod Room Air Room Air Labs Labs: Laboratory Results - last 24 hr 01/03/23 07:45 WBC 4.37 L RBC 4.70 Hgb 13.4 Hct 41.1 MCV 87 MCH 29 MCHC 33 RDW Coeff of Ar 12.1 Plt Count 232 Neut % (Auto) 55.9 Lymph % (Auto) 29.7 [place] % (Auto) 13.3 H Eos % (Auto) 0.9 Baso % (Auto) 0.2 Neut # (Auto) 2.40 Lymph # (Auto) 1.30 [place] # (Auto) 0.60 Eos # (Auto) 0.00 Baso # (Auto) 0.00 Diff Slide Review Acceptable Review Sodium 137 Potassium 3.9 Chloride 106 Carbon Dioxide 28 BUN 10 Creatinine 0.5 Estimated Creat Clear 124.21 Estimated GFR 125 Glucose 88 Lactate 0.9 Calcium 8.4 Phosphorus 2.3 L Magnesium 2.2
--- NOTE | 2023-01-03 16:36 | P.EN_ITS ---
Chart Event Note Chart Event Note: Sera was getting ready for discharge and was having quite a bit of pain. Because of this her CT scan was repeated. Appendix appears more dilated. Also importantly, her small bowel now appears normal. She has not had any further diarrhea since admission. Discussed the situation with the patient and her . I explained that very likely she was recovering from gastroenteritis and developed acute appendicitis, however the CT scan was equivocal initially. I think the best course of action is to proceed with appendectomy. This can most often be done laparoscopically. We discussed risks and benefits of the procedure including but not limited to bleeding, need for conversion to open, ri sk of injury to other structures, need for possible bowel resection, and abscess formation. The patient understands that the risk of abscess is higher if the appendix is perforated. For that reason, we generally keep patient is in the hospital on IV antibiotics until vital signs and white blood cell count had normalized. We also discussed recovery including 2 weeks of lifting restrictions. She is agreeable to proceed and we will plan on surgery urgently. She last ate greater than 5 hours ago and vomited afterwards.
[2023-01-03] MEDS: BUPIVACAINE 0.25% 30 ML INJECTION (17:16)
--- NOTE | 2023-01-03 18:09 | P.GSOP_ITS ---
Operative Note Date of procedure: 01/03/23 Pre-op diagnosis: Acute appendicitis Post-op diagnosis: Same Type of Procedure: Laparoscopic appendectomy Indications: The patient is a 37-year-old female who presented to the emergency department with recent history of gastroenteritis and right-sided abdominal pain. CT scan was initially equivocal for appendicitis and appeared more consistent with enteritis. The patient initially improved and then her pain worsened on hospital day 2 and therefore a repeat CT scan was pursued. This scan was more consistent with acute appendicitis. Because of this I recommended appendectomy and the patient agreed to proceed. Procedure Description: After discussing the risks and benefits of the procedure, the patient signed informed consent.? The operative site was marked and the patient was brought to the operating room and placed on the operating table in supine position.? Care was taken to pad the patient's pressure points.?? The patient was then intubated by anesthesia.?? The operative site was then prepped and draped in the usual sterile fashion.? A time-out was then performed. Entrance to the abdomen was obtained via a 5 mm optical trocar in the left upper quadrant. The abdomen was insufflated and briefly surveyed for any signs of injury. There were none. A 12 mm port was placed inferior to the umbilicus as well as a 5 mm port in the left lower quadrant. Both were done under direct vision. The patient was then placed in Trendelenburg position with the right s dann up. The small bowel was gently moved out of the way and the appendix was in view. A small amount of dissection was necessary to free the appendix from the surrounding pelvic attachments. The appendix was grasped and pulled into view. The appendix was inflamed and dilated however it was not perforated. There was only a small amount of serous fluid in the pelvis. A mesenteric window was crea noble between the base of the appendix and the mesoappendix. An Endo-SHELL purple load stapler was then used to transect the appendix at its base. A vascular load stapler was then used to divide the mesoappendix. The staple lines were inspected for bleeding. There was none initially, however, after the appendix was removed from the abdomen using an Endo-Catch bag there was some clot noted around the staple line. This was suctioned away and a clip was used just to reinforce the staple line and ensure hemostasis. This did appear adequate. The 12 mm port site fascia was closed with 0 Vicryl using a Esteban-Velasquez device. The abdomen was desufflated and the ports were then removed. The skin was then closed with absorbable subcuticular suture. Sterile dressings were then applied. Instrument sponge and needle counts were correct at the end of the case. The patient was then woken and transported to the PACU in stable condition. ? The patient tolerated the procedure well. Findings: Acute non perforated appendicitis Anesthesia: GETA Surgeon: Preethi Christy MD Estimated blood loss (mL): 10 Specimen: Appendix Condition: stable Disposition: PACU
--- NOTE | 2023-01-03 18:10 | P.ANES_ITS ---
Anesthesia Charges Start Date/Time Anesthesia Start Date: 01/03/23 Anesthesia Start Time: 16:51 Stop Date/Time Anesthesia Stop Date: 01/03/23 Anesthesia Stop Time: 18:07 Summary Emergency: ORDNANCE TECHNICIAN
--- NOTE | 2023-01-03 18:11 | PC.NURSE ---
Patient alert and oriented x 3. Lung sounds clear, bowel sounds active x 4 quadrants. Patient reports pain to right lower lateral side, pain increases with movement and ambulation. PRN oxycodone used for pain and effective in reducing pain to acceptable level. At 1200 patient reports new onset of umbilicus pain, right lateral abdominal pain continues. Patient ate breakfast at 1000, at 1430 patient had emesis of undigested food and bile. IV phenegran administered, effective for nausea/vomiting. Patient left unit at 1630 for laparoscopic appendectomy.
[2023-01-03] MEDS: HYDROmorphone 0.5 mg/0.5 ml inj IVP (18:55)
[2023-01-03] MEDS: LACTATED RINGERS 1000 ML 1,000 ML 100 ML IV ×2 (19:34→22:51)
[2023-01-03] MEDS: HYDROCODONE-ACETAMIN 5-325 MG 1 TAB PO (21:18)
[2023-01-03] MEDS: ESCITALOPRAM 10 MG TABLET 20 MG PO (21:18)
[2023-01-04] MEDS: HYDROCODONE-ACETAMIN 5-325 MG 1 TAB PO ×3 (01:36→12:01)
[2023-01-04 04:06] VITALS: BP 118/63; PULSE 95; RESP 16; O2SAT 96
--- NOTE | 2023-01-04 06:49 | PC.NURSE ---
[id number] Shift Summary? [address] Appendectomy? Pt slept very well overnight. Voiding with Ao1, PIV SLed. Denies nausea and no emesis, Tolerating solids. Advanced to regular diet. Vitals stable overnight, soft BPs. Pain 7/10 managed well with [place]. Declines ice and eat. Plans to DC home today with pending stability. On room air. Appy lap sites CDI.?
[2023-01-04 07:00] VITALS: PULSE 95; RESP 16
[2023-01-04 08:28] VITALS: BP 106/58; PULSE 77; RESP 20; TEMP 37.2; O2SAT 99
--- NOTE | 2023-01-04 12:04 | P.DS_ITS ---
DS: Providers Provider Date Seen: 01/04/23 Primary care physician: Alexander Vasquez MD Attending Physician on discharge: Preethi Christy MD Date of Discharge: 01/04/23 DS: Diagnosis Discharge Diagnosis (1) S/P laparoscopic appendectomy: Status: Acute (2) Acute appendicitis: Status: Acute DS: Summary Hospital Course Hospital Course: The patient is a 37-year-old female who presented to the emergency department on 01/02/2023 with abdominal pain and a history of recent gastroenteritis as well as multiple sick contacts. CT scan showed inflammation of the small bowel and equivocal findings for acute appendicitis. She was admitted to the hospital for observation. Initially she felt significantly improved, however when it came time for discharge she vomited and had worsening pain. Repeat CT scan showed that the small bowel inflammation had gone, however the appendix was now more dilated. Appendectomy was recommended. This was done on 01/03/2023. The patient did well and on postop day 1 was deemed safe for discharge, tolerating regular diet, having good pain control on oral meds, and ambulating without difficulty. Time Spent with Patient Time attestation: Total time spent providing and/or coordinating discharge services: Exam Narrative: Exam Narrative: General: No acute distress CV: Regular rate Respiratory: Breathing nonlabored on room air Abdomen: Appropriately tender for the postop state. No erythema around incisions. Small amount ecchymosis noted. Const: Vital Signs, click to edit/add: Vital Signs - 24 hr 01/03/23 12:19 01/03/23 15:00 01/03/23 15:00 Temperature 98.4 F 98.3 F Pulse Rate Pulse Rate [Right Pulse Oximeter] 59 L Respiratory Rate 16 16 Blood Pressure Blood Pressure [Le ft Arm] 97/60 Pulse Oximetry 98 98 Oxygen Delivery Me thod Room Air Room Air Oxygen Flow Rate 01/03/23 18:05 01/03/23 18:10 01/03/23 18:15 Temperature 97.5 F L Pulse Rate 49 L 58 L 50 L Pulse Rate [Right Pulse Oximeter] Respiratory Rate 14 14 14 Blood Pressure 107/63 83/66 L 101/52 L Blood Pressure [Le ft Arm] Pulse Oximetry 100 100 100 Oxygen Delivery Me thod Nasal Cannula Oxygen Flow Rate 2 01/03/23 18:20 01/03/23 18:25 01/03/23 18:30 Temperature Pulse Rate 55 L 57 L 56 L Pulse Rate [Right Pulse Oximeter] Respiratory Rate 14 16 16 Blood Pressure 105/57 L 108/60 105/58 L Blood Pressure [Le ft Arm] Pulse Oximetry 96 95 95 Oxygen Delivery Me thod Room Air Oxygen Flow Rate 01/03/23 18:34 01/03/23 18:45 01/03/23 18:45 Temperature 97.8 F 99.0 F 99.0 F Pulse Rate 63 65 Pulse Rate [Right Pulse Oximeter] 65 Respiratory Rate 16 12 12 Blood Pressure 107/62 Blood Pressure [Le ft Arm] 110/61 110/61 Pulse Oximetry 95 95 Oxygen Delivery Me thod Room Air Room Air Room Air Oxygen Flow Rate 2 01/03/23 18:45 01/03/23 19:15 01/03/23 19:00 Temperature Pulse Rate Pulse Rate [Right Pulse Oximeter] 65 61 62 Respiratory Rate Blood Pressure Blood Pressure [Le ft Arm] 110/61 101/55 L 104/55 L Pulse Oximetry 88 Oxygen Delivery Me thod Room Air Oxygen Flow Rate 01/03/23 19:30 01/03/23 23:00 01/03/23 23:00 Temperature Pulse Rate Pulse Rate [Right Pulse Oximeter] 63 63 68 Respiratory Rate 12 14 Blood Pressure Blood Pressure [Le ft Arm] 98/61 109/62 Pulse Oximetry 94 93 Oxygen Delivery Me thod Room Air Oxygen Flow Rate 2 01/03/23 20:00 01/03/23 20:30 01/03/23 21:00 Temperature Pulse Rate Pulse Rate [Right Pulse Oximeter] 65 67 78 Respiratory Rate Blood Pressure Blood Pressure [Le ft Arm] 99/58 L 101/52 L 106/89 Pulse Oximetry 91 92 97 Oxygen Delivery Me thod Room Air Oxygen Flow Rate 01/03/23 21:30 01/03/23 22:30 01/04/23 04:06 Temperature Pulse Rate Pulse Rate [Right Pulse Oximeter] 73 94 95 Respiratory Rate 16 Blood Pressure Blood Pressure [Le ft Arm] 115/68 116/54 L 118/63 Pulse Oximetry 96 Oxygen Delivery Me thod Room Air Oxygen Flow Rate 01/04/23 07:00 01/04/23 08:28 Temperature 98.9 F Pulse Rate Pulse Rate [Right Pulse Oximeter] 95 77 Respiratory Rate 16 20 Blood Pressure Blood Pressure [Le ft Arm] 106/58 L Pulse Oximetry 99 Oxygen Delivery Me thod Room Air Oxygen Flow Rate Discharge Plan Discharge Disposition: Home, Self-Care Discharging Surgeon: Preethi Christy Follow-Up Appointment: 2 weeks [facility] Prescriptions: New oxycodone 5 mg Tablet 5 mg PO Q4H PRN (Reason: Pain) Qty: 15 0RF Continued lorazepam 1 mg tablet 0.5 mg PO BID PRN (Reason: anxiety) Qty: 90 1RF escitalopram oxalate 20 mg tablet 20 mg PO QDAY Qty: 90 3RF naproxen 500 mg tablet 500 mg PO BID Qty: 180 3RF valacyclovir 1 gram tablet 2,000 mg PO TID zolpidem 5 mg tablet 5 mg PO HS PRN (Reason: insomnia) Activity Level: Activity as Tolerated and No strenuous activity Activity Detail: No lifting more than 20 lb for 2 weeks Discharge Diet: Regular and Low Fiber Diet Detail: Low fiber, advance as tolerated Patient Instructions: Oxycodone, Rapid Release (By mouth), Surgical Site Infections (DC), General Anesthesia (DC), Laparoscopic Appendectomy (DC), Post- Operative Instructions: Appendectomy Additional Instructions: Wound care: Your sutures are under the skin and will dissolve over time. Leave steri strips (white bandages) over incisions until they fall off (or remove after 7 days). OK to shower tomorrow but avoid bathing, soaking or swimming for 2 weeks. Pat the incisions dry. No need to wash or scrub the area. Apply ice to the area as needed for swelling. It is also OK to use a heating pad if this provides more comfort to you. Pain control: You were prescribed a pain medication. This medication contains acetaminophen (Tylenol). If you are taking your prescribed pain pills 4 times daily, do not take additional acetaminophen. As your pain improves, you can try taking acetaminophen instead of the prescribed pain pill. It is ok to take Ibuprofen or Naproxen (per directions on packaging). This med ication helps with inflammation and swelling. Take an [id number] stool softener while you are taking prescribed pain medications to help alleviate constipation. I recommend Senna and/or Colace. Take as directed on package. If you have not had a bowel movement in 3 days, try taking Miralax as directed on the package. All of these are available over the counter. Follow-up Follow up with Dr. Christy in 2-3 weeks Please call if you are experiencing severe pain, nausea, vomiting, difficulty urinating, fever or have not had bowel movement in 4 days after surgery. Forms: Work/School Release, [facility] Info Instructions Follow-up: Preethi Christy MD [Staff Physician] - 01/21/23 2:00 pm Discharge Orders: Discharge Order (Routine); Ordered 01/04/23 Ordered By: Preethi Christy
[2023-01-04 12:23] VITALS: BP 107/62; PULSE 65; RESP 20; TEMP 37.2
== END 2023-01-04 12:52 | disposition home or self-care (01) ==
LOC: ED 13:57 → MEDSURG 14:41 → SS 01-04 11:30 → MEDSURG 01-04 11:30
PROVIDERS: Internal Medicine; Emergency Provider Emergency Medicine Emergency Medical Services; PCP Family Medicine; Visit Provider Surgery
PROC: 0DTJ4ZZ Resection of Appendix, Percutaneous Endoscopic Approach (ICD-10-PCS; CPT 44970; principal; 2023-01-03 16:45)
DX: K35.80 Unspecified acute appendicitis (principal); K52.9 Noninfective gastroenteritis and colitis, unspecified; R10.31 Right lower quadrant pain; Z14.1 Cystic fibrosis carrier; F41.1 Generalized anxiety disorder; F33.9 Major depressive disorder, recurrent, unspecified
CPT/HCPCS: 44970; 36415; 74177; 80048; 83605; 83735; 840; 84100; 85025; 87045; 87046; 87427; 87631; 88304; 99140; 99285; A9270; J0330; J0696; J1100; J1170; J2250; J2405; J2543; J2550; J2704; J2710; J3010; J3490; J7120; Q9967; S0030

== ENCOUNTER 2023-06-03 11:58 | Outpatient (CLI) | payer BC, SELFPAY | END 2023-06-03 11:59 | disposition home or self-care (01) | LOC: FBOREF 11:59 | PROVIDERS: PCP Family Medicine; Visit Provider Family Medicine | DX: R53.83 Other fatigue (principal) | CPT/HCPCS: 84443 ==

== ENCOUNTER 2025-02-08 14:05 | Outpatient (CLI) | payer BC, SELFPAY ==
[2025-02-10 07:33] LABS: HPV Source Cervical; HPV, High Risk by TMA Not Detected
== END 2025-02-08 14:06 | disposition home or self-care (01) ==
PROVIDERS: PCP Family Medicine; Visit Provider Obstetrics & Gynecology
DX: Z01.419 Encounter for gynecological examination (general) (routine) without abnormal findings (principal); N92.0 Excessive and frequent menstruation with regular cycle; Z13.6 Encounter for screening for cardiovascular disorders
CPT/HCPCS: 80061; 84443; 87624; 87625; 88141; 88142

== ENCOUNTER 2025-04-06 12:13 | Outpatient (CLI) | payer BC, SELFPAY ==
--- NOTE | 2025-04-06 12:15 | CRLHL7_ITS ---
For Patients: As a result of the Century Cures Act, medical imaging exams and procedure reports are released immediately into your electronic medical record. You may view this report before your referring provider. If you have questions, please contact your health care provider. INDICATION: Excessive infrequent menstruation COMPARISON: CT 01/03/2023 TECHNIQUE: Transabdominal: Norman-scale and color Doppler ultrasound of the uterus and ovaries from a transabdominal approach. Transvaginal: Norman-scale and color Doppler ultrasound of the uterus and ovaries from a transvaginal approach. Transvaginal ultrasound of the pelvis was performed to better visualize the genitourinary organs, such as the ovaries and/or endometrium. Color Doppler imaging of both ovaries. FINDINGS: Reported last menstrual period: 03/30/2025. The uterus is anteverted and measures 8.3 x 3.8 x 5.6 cm. No uterine masses. The endometrial stripe measures 0.6 cm in double thickness. There is an endometrial polyp that measures about 2.9 x 1.1 x 1.8 cm and has internal vascularity. The cervix is normal. The right ovary measures 3.3 x 2.3 x 3.0 cm. Numerous small follicles. Physiologic appearance without a dominant cystic lesion or solid ovarian / adnexal mass. Normal color Doppler flow. The left ovary measures 3.6 x 2.5 x 3.1 cm. There are few small follicles. Physiologic appearance without a dominant cystic lesion or solid ovarian / adnexal mass. Normal color Doppler flow. No free fluid. IMPRESSION: Endometrial polyp. Dictated by Heather Davison MD @ 04/11/2025 8:37:41 AM (Electronically Signed)
== END 2025-04-06 12:14 | disposition home or self-care (01) ==
PROVIDERS: PCP Family Medicine; Visit Provider Obstetrics & Gynecology
DX: N92.0 Excessive and frequent menstruation with regular cycle (principal); N84.0 Polyp of corpus uteri
CPT/HCPCS: 76830; 76856

== ENCOUNTER 2025-07-27 10:12 | Outpatient (CLI) | payer BC, SELFPAY | END 2025-07-27 10:13 | disposition home or self-care (01) | PROVIDERS: PCP Family Medicine; Visit Provider Family Medicine | DX: Z01.818 Encounter for other preprocedural examination (principal) | CPT/HCPCS: 80048; 85025 ==

== ENCOUNTER 2025-08-10 09:35 | Day surgery (SDC) | payer BC, SELFPAY ==
[2025-08-10] VITALS (19 sets, daily range): BP systolic 100–125; BP diastolic 39–79; PULSE 77–96; RESP 16–20; TEMP 36.2–40.1; O2SAT 89–98; BMI 37.6
[2025-08-10 10:47] LABS: Hemoglobin* 14.1 gm/dL (12.0-16.0)
[2025-08-10] MEDS: ACETAMINOPHEN 500 MG TABLET 1000 MG PO ×2 (10:49→16:29)
[2025-08-10] MEDS: GABAPENTIN 600 MG TABLET PO (10:49)
[2025-08-10] MEDS: SCOPOLAMINE 1 MG/3 DAY PATCH 1 PATCH TRANSDERMA (10:49)
[2025-08-10] MEDS: SODIUM CHLORIDE 0.9 % (FLUSH) 10 ML SYRINGE IVF (10:50)
[2025-08-10] MEDS: LACTATED RINGERS 1000 ML 1,000 ML 100 ML IV ×2 (10:50→13:10)
[2025-08-10] MEDS: ETHYL CHLORIDE 1 APPLICATION 1 APPLIC TOPICAL (10:51)
[2025-08-10 11:02] LABS: Creatinine* 0.6 mg/dL (0.5-1.5); Est. Creatinine Clearance* 101.53; Estimated Glomerular Filt Rate 118 ml/min
[2025-08-10 14:08] LABS: Ur HCG Qualitative* Negative (Negative)
--- NOTE | 2025-08-10 14:48 | P.ANES_ITS ---
Anesthesia Charges Start Date/Time Anesthesia Start Date: 08/10/25 Anesthesia Start Time: 12:08 Stop Date/Time Anesthesia Stop Date: 08/10/25 Anesthesia Stop Time: 15:24 Coding CPT Codes CPT Codes: ANESTH SURG LOWER ABDOMEN - 91509 ([id number]) P3 - PATIENT W/SEVERE SYS DISEASE, QK - BLIND LACER 2-4 CNCRNT ANES PROC, QX - POWER PLANT INSTALLER SVC W/ MD MED DIRECTION
--- NOTE | 2025-08-10 14:48 | W.ANESCHARGE ---
Anesthesia Charges Start Date/Time Anesthesia Start Date: 08/10/25 Anesthesia Start Time: 12:08 Stop Date/Time Anesthesia Stop Date: 08/10/25 Anesthesia Stop Time: 15:24 Coding CPT Codes CPT Codes: ANESTH SURG LOWER ABDOMEN - 85747 ([id number]) P3 - PATIENT W/SEVERE SYS DISEASE, QK - WATER QUALITY CONTROL ENGINEER 2-4 CNCRNT ANES PROC, QX - RETAIL PERSONAL BANKER SVC W/ MD MED DIRECTION
--- NOTE | 2025-08-10 14:49 | W.PM.NB ---
Nerve Block Nerve Block Time Seen by Provider: 12:20 Date Seen: 08/10/25 Type of block requested by surgeon for post-operative analgesia: TAP Side: bilateral Time out performed: Yes Verification of patient name: Yes Verification of date of : Yes Site marking: site marked Name of person performing procedure: Alessio Continuous monitoring Was continuous monitoring of O2 sat, B/P, environmental monitoring technician, recorded every 15 minutes?: Yes Procedure Checklist: sterile prep, needles and gloves Ultrasound guided. Images saved: Yes Medications given in 5ml increments after negative aspiration: Marcaine %: 0.25 mL: 30 Needle gauge: 20 and Exparel mL: 10 Patient tolerated procedure well: Yes Additional comments: Needle noted between internal oblique and transversus abdominus. Local spread visualized Block Charges Block Charge (with Pro Fee): TAP Bilateral Use of Ultrasound Machine for Block: Yes- US Guidance/pain block
[2025-08-10] MEDS: BUPIVACAINE 0.25% 30 ML INJECTION (15:10)
--- NOTE | 2025-08-10 15:18 | W.PM.GYNPROC ---
Procedure Note Date of procedure: 08/10/25 Will [facility] bill your pro fee for this procedure?: Yes Pre-op diagnosis: 1. Menorrhagia 2. Dysmenorrhea 3. Endometrial polyp by ultrasound Post-op diagnosis: 1. Menorrhagia 2. Dysmenorrhea 3. Endometrial polyp by ultrasound Procedure: 1. Total laparoscopic hysterectomy 2. Bilateral salpingectomy 3. Diagnostic cystoscopy Anesthesia: GETA and other (TAP block) Complications: None Surgeon: Lee Ann Rubi MD Cleaning And Washing Equipment Operator: Sara Montoya Estimated blood loss (mL): 75 Pathology: specimen obtained, sent to pathology (1. Bilateral fallopian tubes, 2. Uterus) Condition: stable Disposition: floor Findings: Normal appearing uterus, fallopian tubes, and ovaries. Procedure Description: After obtaining informed consent, the patient was taken to the operating room where general anesthesia was obtained without difficulty. She was prepared and draped in the normal sterile fashion in the low dorsal lithotomy position. A Neely catheter was inserted into the bladder and left to gravity drainage. A medium Graves open-sided speculum was introduced into the vagina. The cervix was visualized and grasped along its anterior lip with a single-tooth tenaculum. The uterus was gently sounded. Sound length was found to be 8 cm. The cervix was gently dilated to a #5 dilator. I then placed a large VCare uterine manipulator. The tenaculum and speculum were removed. The green VCare cup was digitally pressed up against the cervix and then cinched in place with the blue accessory cup. I then changed gloves and my attention was turned to the abdomen. The inferior aspect of the umbilical fold was injected with 0.25% Marcaine plain. A 12 mm vertical incision was then made within the umbilical fold using a scalpel. The underlying fascia was identified, grasped with two small Fauzia clamps, elevated, and incised sharply with Beavers scissors. The underlying peritoneum was identified, grasped with a Patricia clamp and entered sharply with Metzenbaum scissors. Direct entry into the abdominal cavity was confirmed visually and digitally. An 11 mm laparoscopic port was inserted under direct visualization through the defect and pneumoperitoneum obtained with insufflation of CO2 gas. The 10 mm laparoscope was used then to carefully inspect the abdomen and pelvis with findings noted above. Pictures were taken for documentation purposes. The patient was placed in Trendelenburg positioning. Two additional 5 mm ports were placed in the right and left lower quadrants under direct visualization after first anesthetizing the skin and fascia with 0.25% Marcaine plain. Once the ports were in place, the VCare manipulator was used to elevate the uterus. The ureters could not be identified bilaterally along their courses in the pelvic sidewalls due to significant adipose. The VCare cup was visualized and palpated with a blunt grasper. The right tube was elevated with a graspers. The LigaSure device was used to dissect the tube from it's ovarian and broad ligament and cornual attachments before removing the tube through a lower port. Excellent hemostasis was obtained. The left tube was elevated with a graspers. The LigaSure device was used to dissect the tube from it's ovarian and broad ligament and cornual attachments before removing the tube through a lower port. Excellent hemostasis was obtained. The left round ligament was then sealed in a wide swath and transected with the LigaSure. Excellent hemostasis was obtained. The broad ligament was then opened using the Ligasure anteriorly and posteriorly along the cervix from the left within the confines of the VCare cup. Pressure was maintained on the uterine manipulator the whole time. This dissection was moderately difficult due to difficulty establishing the tissue plane and tortuous vessels. Attention was then turned to the right side. The right round ligament was then sealed in a wide swath and transected with the LigaSure. Excellent hemostasis was obtained. The broad ligament was then opened using the LigaSure anteriorly and posteriorly along the cervix from the right within the confines of the VCare cup. Pressure was maintained on the uterine manipulator the whole time. The right uterine vessels were sealed in a wide swath and transected with the halo, then the tissues over the VCare cup edge on the right side were thinned using the halo to the midline posteriorly and anteriorly so that the fascial layer could be identified. The left uterine vessels were sealed in a wide swath and transected with the LigaSure, then the tissues over the VCare cup edge on the left side were thinned using the LigaSure to the midline posteriorly and anteriorly so that the fascial layer could be identified. Once an adequate dissection was made circumferentially, the LigaSure was removed and the [facility] spatula used to incise the tissue circumferentially around the cervix within the groove of the VCare cup. Once the dissection was completed circumferentially, I was able to go below and remove the uterine manipulator and the uterus from the abdomen. The uterus was left in the vagina to aid in maintaining pneumoperitoneum. The vaginal cuff was carefully inspected and there was some active bleeding noted from the left angle and from the anterior cuff. The first was controlled with bipolar electrocautery using the LigaSure, and the small arterial on the anterior cuff was controlled with the [facility] spatula. The vaginal cuff was reapproximated in a running fashion with a V-Loc suture starting from the right side and running across to the left and then back to the midline where the suture was cut flush with the tissues. The pelvis was copiously irrigated and hemostasis visualized. Preparations were then made for cystoscopy. Fluorescein was administered intravenously along with the IV fluids. The Neely catheter was removed. The patient was flattened out. Cystoscopy was performed using sterile normal saline as distending medium. The bladder was carefully inspected and noted to be free of filling defects or suture material. Both ureteral orifices were easily visualized and fluorescein tinged urine jets were noted from both sides. The cystoscope was then removed. The Neely catheter was sterilely replaced into the bladder. I then changed gloves again and my attention was once again turned to the abdomen. The abdomen and pelvis were again irrigated and inspected for hemostasis. Mel was placed over the vaginal cuff and raw edges for extra hemostasis. All instruments were then removed under direct visualization. Pneumoperitoneum was allowed to escape. The fascia was reapproximated at the umbilicus with 0 Vicryl. The skin at all 3 port sites was closed in a subcuticular fashion with 4-0 Vicryl. Surgical glue was then placed over the incisions. The patient tolerated the procedure well. Sponge, lap, needle, and instrument counts were reported as correct x2. The patient was taken to the recovery room awake and in stable condition. She did receive 2 g of IV Ancef preoperatively. She received 30 mg IV Toradol at the conclusion of the procedure
--- NOTE | 2025-08-10 15:27 | P.ANES_ITS ---
Anesthesia Charges Start Date/Time Anesthesia Start Date: 08/10/25 Anesthesia Start Time: 12:08 Stop Date/Time Anesthesia Stop Date: 08/10/25 Anesthesia Stop Time: 15:24 Coding CPT Codes CPT Codes: ANESTH SURG LOWER ABDOMEN - 16826 ([id number]) P3 - PATIENT W/SEVERE SYS DISEASE, QK - FOREST LANDSCAPE ECOLOGY PROFESSOR 2-4 CNCRNT ANES PROC, QX - MANAGEMENT ENGINEER SVC W/ MD MED DIRECTION
--- NOTE | 2025-08-10 15:27 | W.ANESCHARGE ---
Anesthesia Charges Start Date/Time Anesthesia Start Date: 08/10/25 Anesthesia Start Time: 12:08 Stop Date/Time Anesthesia Stop Date: 08/10/25 Anesthesia Stop Time: 15:24 Coding CPT Codes CPT Codes: ANESTH SURG LOWER ABDOMEN - 61242 ([id number]) P3 - PATIENT W/SEVERE SYS DISEASE, QK - BUSINESS SERVICES ASSISTANT 2-4 CNCRNT ANES PROC, QX - BRAZING MACHINE OPERATOR AUTOMATIC SVC W/ MD MED DIRECTION
[2025-08-10] MEDS: ONDANSETRON 2 MG/ML inj 4 MG IVP (19:30)
[2025-08-11 03:27] VITALS: BP 108/65; PULSE 80; RESP 16; TEMP 36.4; O2SAT 97
--- NOTE | 2025-08-11 04:52 | PC.NURSE ---
[id number]: Patient pleasant and cooperative. Pain managed with scheduled and PRN medication. Active ice declined. 3 lap sites CANDICE. Ambulation encouraged. Walked halls x1. Friend at bedside and supportive. Eating and voiding.
[2025-08-11 06:53] LABS: Hemoglobin* 12.6 gm/dL (12.0-16.0)
[2025-08-11 07:00] VITALS: BP 107/67; PULSE 74; RESP 16; TEMP 36.3; O2SAT 96
[2025-08-11] MEDS: ESCITALOPRAM 10 MG TABLET 20 MG PO (08:00)
--- NOTE | 2025-08-11 09:27 | PM.GYNDS1 ---
DS: Providers Provider Time Seen by Provider: 09:10 Date Seen: 08/11/25 Date of admission: 08/10/2025 Primary care physician: Alexander Vasquez MD Admitting Clinician: Lee Ann Rubi MD Attending Physician on discharge: Lee Ann Rubi MD Date of Discharge: 08/11/25 DS: Diagnosis Discharge Diagnosis (1) Status post laparoscopic hysterectomy: Status: Acute MANAGER OF SELECTION AND ASSESSMENT-Discharge Summary Hospital Course Hospital Course Narrative: Patient is a 39 year old admitted on 08/10/2025 for observation following total laparoscopy hysterectomy, bilateral salpingectomy and diagnostic cystoscopy. Indication for surgery: menorrhagia, dysmenorrhea, endometrial polyp. Intraoperative findings were notable for normal-appearing uterus, tubes and ovaries. She had an uncomplicated surgery. Postoperative course has been uneventful. Vitals have been stable. She has remained afebrile. Today, on postoperative day 1, she reports the pain is well controlled. She has been able to ambulate Without difficulty. She is tolerating regular diet. She is passing flatus, tough experiencing some gas pains. Neely catheter has been removed, and she is voiding without difficulty. Time Spent with Patient Time attestation: Total time spent providing and/or coordinating discharge services: Time spent: Less than 30 minutes MANAGER OF SELECTION AND ASSESSMENT - Exam Physical Exam: Vital signs: Temp Pulse Resp BP Pulse Ox O2 Del Method O2 Flow Rate 97.4 F L 74 16 107/67 96 Nasal Cannula 2 08/11/25 07:00 08/11/25 07:00 08/11/25 07:00 08/11/25 07:00 08/11/25 07:00 08/11/25 07:00 08/10/25 17:00 Constitutional: Constitutional: no acute distress Routine HEENT Exam: Head: Present normal inspection Routine Neck Exam: NECK: Present supple Routine Respiratory Exam: Respiratory: Present CTA bilaterally; Absent crackles, rhonchi or wheezes Routine Cardiovascular Exam: Cardiovascular: Present RRR; Absent murmur Routine Abdominal Exam: Abdominal: Present normal bowel sounds and soft; Absent distended or tenderness Comments: Incisions clean, dry, intact. Routine Extremities Exam: Extremities: Present normal inspection; Absent calf tenderness or pedal edema Routine Psychiatric Exam: Psychiatric: Present normal affect MANAGER OF SELECTION AND ASSESSMENT - DS: Data Data Completed and Pending Labs on day of discharge: Labs from last 24 hours 08/11/25 08/10/25 08/10/25 05:50 10:35 10:25 Hgb 12.6 14.1 Creatinine 0.6 Estimated Creat Clear 101.53 Estimated GFR 118 Urine HCG, Qual Negative Blood Type B Negative Antibody Screen NEGATIVE Procedures Procedures: Procedures Operation Date: 08/10/25 11:00 Actual Procedure Side Surgeon p M/S-Total Laparoscopic Hysterectomy, Bilateral Salpingectomy, Diagnostic Cystoscopy Not Applicable Lee Ann Rubi MD Discharge Plan Discharge Disposition: Home w/ Parent or Adult Discharging Surgeon: Lee Ann Rubi Follow-Up Appointment: 2 weeks in [facility] Prescriptions: New oxycodone 5 mg Tablet 5 mg PO Q6H PRN (Reason: Moderate Pain) Qty: 20 0RF docusate sodium [Colace] 100 mg capsule 100 mg PO DAILY Qty: 30 0RF Continued zolpidem 5 mg tablet 5 mg PO HS PRN (Reason: insomnia) Qty: 90 1RF clobetasol 0.05 % cream 1 applic topical BID Qty: 60 1RF valacyclovir 1 gram tablet 1,000 mg PO BID PRN (Reason: herpes outbreak ) 7 Days Qty: 42 5RF naproxen 500 mg tablet 500 mg PO BID PRN (Reason: pain) Qty: 180 3RF lorazepam 1 mg tablet 1 mg PO HS PRN (Reason: anxiety) methylphenidate HCl [Concerta] 36 mg tablet extended release 24hr 36 mg PO DAILY escitalopram oxalate 20 mg tablet 20 mg PO DAILY Activity Level: Activity as Tolerated Discharge Diet: Regular Patient Instructions: Scopolamine (Absorbed through the skin) (Transderm Scop), Bupivacaine Liposome (By injection), General Anesthesia (DC), NH+C Laparoscopic Hysterectomy Additional Instructions: Discharge instructions were reviewed with the patient including signs and symptoms of infection and medications to use for pain (May continue naproxen twice daily. Use Tylenol 1000 mg every 6 hours and Oxycodone 5 mg every 6 hours as needed.) ? No lifting greater than 25 pounds for 6 weeks. Nothing per vagina for 6 weeks. Off work or school for 6 weeks. ? Follow up with your surgeon in 2 weeks for incision check and 6 weeks for a postoperative visit or sooner as needed. Follow-up: Alexander Vasquez MD [Primary Care Provider, Family Practice] Discharge Orders: Discharge Order (Routine); Ordered 08/11/25 Ordered By: Lee Ann Rubi
[2025-08-11] MEDS: ONDANSETRON 2 MG/ML inj 4 MG IVP (09:39)
[2025-08-11] MEDS: SIMETHICONE 80 MG TAB.CHEW 160 MG PO (09:44)
--- NOTE | 2025-08-11 12:08 | PC.NURSE ---
Discharge Note 260 Patient was pleasant and cooperative throughout shift. VSS. Afebrile. A&Ox4. Moves independently. Surgical sites dry and intact. Patient discharged at 11:17 accompanied by friend.
== END 2025-08-11 11:17 | disposition home or self-care (01) ==
LOC: OR 09:39 → MEDSURG 09:40 → OR 15:52 → MEDSURG 16:35
PROVIDERS: PCP Family Medicine; Visit Provider Obstetrics & Gynecology
PROC: 0UT94ZZ Resection of Uterus, Percutaneous Endoscopic Approach (ICD-10-PCS; CPT 58571; principal; 2025-08-10 11:00)
DX: N92.0 Excessive and frequent menstruation with regular cycle (principal); N94.6 Dysmenorrhea, unspecified; N84.0 Polyp of corpus uteri; N72 Inflammatory disease of cervix uteri; G89.18 Other acute postprocedural pain
CPT/HCPCS: 58571; 00840; 36415; 64488; 76942; 81025; 82565; 85018; 86850; 86900; 86901; A4314; A9270; J0330; J0665; J0690; J1885; J2405; J2704; J3010; J3475; J3490; J7120

== ENCOUNTER 2025-08-17 10:36 | Emergency (ER) | payer BC, SELFPAY ==
[2025-08-17 10:43] VITALS: BP 126/76; PULSE 93; RESP 18; TEMP 36.8; O2SAT 98; BMI 36.6
--- NOTE | 2025-08-17 10:58 | CRLHL7_ITS ---
For Patients: As a result of the Century Cures Act, medical imaging exams and procedure reports are released immediately into your electronic medical record. You may view this report before your referring provider. If you have questions, please contact your health care provider. INDICATION: Leg pain TECHNIQUE: Ultrasound venous duplex lower right extremity. Compression venous exam was performed using claudio-scale, color Doppler, and spectral Doppler analysis. COMPARISON: None. FINDINGS: Deep veins: Sonographic imaging demonstrates the right common femoral, deep femoral, superficial femoral, popliteal, posterior tibial and the contralateral left common femoral veins to be fully compressible with normal color Doppler blood flow. Superficial veins: Greater saphenous vein is fully compressible. No popliteal cyst. IMPRESSION: No evidence of venous thrombosis in the examined veins. Dictated by Elda Hall MD @ 08/17/2025 12:26:02 PM (Electronically Signed)
--- NOTE | 2025-08-17 11:12 | ED_ITS ---
HPI - General Adult General Date Seen: 08/17/25 Chief complaint: Extremity Pain/Injury, Lower Stated complaint: Leg cramp post op hysterectomy Time Seen by Provider: 08/17/25 10:48 Source: patient Mode of arrival: ambulatory Limitations: no limitations History of Present Illness HPI narrative: Patient is a 39-year-old female presenting for right calf pain. She had a hysterectomy 1 week ago. Over the weekend she began have right leg cramping. States simply a constant dull ache in the calf that is worse when she gets up and moves around. Was told to come in to be evaluated for blood clots. She has no history of blood clots. Denies any chest pain and shortness of breath. Pain is rather minimal right now she states. Does state she has been having worsening dizziness and some episodes of lightheadedness since the weekend also. The dizziness she states is chronic as she has Meniere's disease but she typically does not get lightheaded with it. She states the lightheadedness only occurs when she 1st gets up and then gets better. Denies fevers, chills, headache, vision changes no weakness, numbness, abdominal pain. No other concerns at this time. Has not had a syncopal episode yet. Related Data Home Medications ?Medication ?Instructions ?Recorded ?Confirmed escitalopram oxalate 20 mg tablet 20 mg PO DAILY 08/1008/17/25 lorazepam 1 mg tablet 1 mg PO HS PRN anxiety 08/1008/17/25 methylphenidate HCl 36 mg 36 mg PO DAILY 08/10/2506/03 tablet,extended release 24 hr (Concerta) Previous Rx's ?Medication ?Instructions ?Recorded naproxen 500 mg tablet 500 mg PO BID PRN pain #180 tabs 11/09/24 valacyclovir 1 gram tablet 1,000 mg PO BID PRN herpes 11/09/24 outbreak 7 days #42 tabs zolpidem 5 mg tablet 5 mg PO HS PRN insomnia #90 tabs 06/17/25 clobetasol 0.05 % topical cream 1 applic topical BID # 60 grams 07/27/25 docusate sodium 100 mg capsule 100 mg PO DAILY #30 cap s 08/11/25 (Colace) oxycodone 5 mg tablet 5 mg PO Q6H PRN Moderate Connie n #20 08/11/25 tabs Allergies Allergy/AdvReac Type Severity Reaction Status Date / Time diphenhydramine (From Allergy Intermediate Rash Verified 07/27/25 10:22 Benadryl) bupropion AdvReac Intermediate Nausea Verified 07/27/25 10:22 capsaicin AdvReac Verified 07/27/25 10:22 [email or web address] Allergy Hives Uncoded 07/27/25 10:22 Review of Systems Status of ROS: Reports: 10 or more systems reviewed and unremarkable except as noted in History and below PFSH [facility] Medical History ADHD, predominantly inattentive type ?F90.0 - Attention-deficit hyperactivity disorder, predominantly inattentive type (ICD-10) OCD (obsessive compulsive disorder) ?F42.9 - Obsessive-compulsive disorder, unspecified (ICD-10) Major depression, recurrent ?F33.9 - Major depressive disorder, recurrent, unspecified (ICD-10) Menorrhagia ?N92.0 - Excessive and frequent menstruation with regular cycle (ICD-10) PTSD (post-traumatic stress disorder) ?F43.10 - Post-traumatic stress disorder, unspecified (ICD-10) Meniere's disease ?H81.09 - Meniere's disease, unspecified ear (ICD-10) History of spontaneous (2017) ?Z87.59 - Personal history of other complications of , childbirth and the puerperium (ICD-10) History of bulimia nervosa ?Z86.59 - Personal history of other mental and behavioral disorders (ICD-10) History of anorexia nervosa ?Z86.59 - Personal history of other mental and behavioral disorders (ICD-10) Cystic fibrosis carrier ?Z14.1 - Cystic fibrosis carrier (ICD-10) History of herpes genitalis ?Z86.19 - Personal history of other infectious and parasitic diseases (ICD- 10) Insomnia ?G47.00 - Insomnia, unspecified (ICD-10) AAMIR (generalized anxiety disorder) ?F41.1 - Generalized anxiety disorder (ICD-10) Surgical History S/P laparoscopic appendectomy (~10/2024) ?Z90.49 - Acquired absence of other specified parts of digestive tract (ICD- 10) History of vaginal delivery (2015) History of vacuum extraction assisted delivery (2013) ?Z87.59 - Personal history of other complications of , childbirth and the puerperium (ICD-10) History of tooth extraction (1998) ?K08.409 - Partial loss of teeth, unspecified cause, unspecified class (ICD- 10) History of third molar tooth extraction (2004) ?K08.409 - Partial loss of teeth, unspecified cause, unspecified class (ICD- 10) History of cholecystectomy (2013) ?Z90.49 - Acquired absence of other specified parts of digestive tract (ICD- 10) Family History Mother Thyroid disease Seizure disorder Paternal Grandmother Breast cancer Social History Narrative: Cis-gender, heterosexual woman Relationship status: . Has 3 children. Education: Some college Occupation: Homemaker Tobacco: Lifetime nonsmoker E-cigarettes: No Alcohol: Yes ?occasionally Illicit/recreational drugs: No Safety concerns at home or work: No Dietary restriction(s): No Exercise: No. What is your current living situation?: I presently have a place to live Problems where you live: no known problems In the past 12 months, utilities in danger of being shut off: no In past 12 months, lack of transportation kept you from medical appts, meetings, work, or getting things needed for daily living: no In the past 12 mos, have been you worried that your food would run out before you had money to buy more?: never true In the past 12 mos, the food you bought just didn't last and you didn't have money to buy more?: never true Highest level of school completed/degree received: some college, no degree Smoking Status: Current some day smoker What tobacco products do you use: cigarettes Do you use any of these nicotine containing products: None Second hand tobacco smoke exposure: No How often do you have a drink containing alcohol: never How often do you have six or more drinks on one occasion: Never AUDIT-C Alcohol total score: 0 Non-prescribed substance use: denies use Non-prescribed substance use details: edibles- marijuana Caffeine: Yes (pop) How often does anyone, including family, friends and others, physically hurt you : never How often does anyone, including family, friends and others, insult or talk down to you: never How often does anyone, including family, friends and others, threaten you with harm: never How often does anyone, including family, friends and others, scream or curse at you: never service: Yes Exam Narrative: Exam Narrative: Const: Well-nourished, Well-developed, in no distress Eyes: PERRL, no conjunctival injection, and symmetrical lids HENT: Atraumatic external nose and ears. Moist mucous membranes. Neck: Symmetric, trachea midline, No thyromegaly. CVS: RRR, No murmurs or gallops. Peripheral pulses 2+ and equal in all extremities RESP: Unlabored respiratory effort. Clear to auscultation bilaterally. GI: Nontender/Nondistended, No rebound or guarding. MSK:Extremities w/o deformity, Normal Active ROM, no calf tenderness Skin: Warm, Dry. No rashes or lesions. Neuro: Normal Muscle tone, No focal neurological deficits. Psych: Awake, Alert, & Oriented x3. Appropriate mood and affect. Const: Vital Signs, click to edit/add: Vital Signs - 24 hr 08/17/25 10:43 08/17/25 12:25 Temperature 98.3 F Pulse Rate 80 Pulse Rate [Pulse Oximeter] 93 Respiratory Rate 18 16 Blood Pressure 127/73 Blood Pressure [Ri ght Upper Arm] 126/76 Pulse Oximetry 98 100 Oxygen Delivery Me thod Room Air Room Air Course Vital Signs Vital signs: Initial Vital Signs Temperature 98.3 F 08/17/25 10:43 Temperature Source Temporal Artery Scan 08/17/25 10:43 Pulse Rate 93 08/17/25 10:43 Respiratory Rate 18 08/17/25 10:43 Blood Pressure 126/76 08/17/25 10:43 Blood Pressure Mean 92 08/17/25 10:43 Pulse Oximetry 98 08/17/25 10:43 Oxygen Delivery Method Room Air 08/17/25 10:43 Vital Signs Temperature 98.3 F 08/17/25 10:43 Pulse Rate 93 08/17/25 10:43 Respiratory Rate 18 08/17/25 10:43 Blood Pressure 126/76 08/17/25 10:43 Pulse Oximetry 98 08/17/25 10:43 Oxygen Delivery Method Room Air 08/17/25 10:43 Temperature 98.3 F 08/17/25 10:43 Pulse Rate 80 08/17/25 12:25 Respiratory Rate 16 08/17/25 12:25 Blood Pressure 127/73 08/17/25 12: Pulse Oximetry 100 08/17/25 12:25 Oxygen Delivery Method Room Air 08/17/25 12:25 Medical Decision Making MDM Narrative Medical decision making narrative: Patient is a 39-year-old female presenting for right leg pain. Will check of ultrasound to look for DVT. With a cramping sensation recent surgery could be electrolyte abnormalities will check a CBC, BMP, magnesium. With her lightheadedness this also could be some dehydration versus electrolyte abnormalities. Will check an EKG though for any possible arrhythmias. Work shows no acute concerning abnormalities as reviewed by myself. EKG interpreted by myself shows no acute concerning findings. Ultrasound returned showing no sign of DVT. She is doing well at this time. She is safe for discharge. Diagnosis: Right leg pain Lab Data Labs: Lab Results 08/17/25 Range/Units 11:15 WBC 8.50 (4.50-11.00) K/uL RBC 4.98 (4.00-5.20) m/uL Hgb 14.6 (12.0-16.0) gm/dL Hct 44.2 (33.0-51.0) % MCV 89 (80-100) fL MCH 29 (26-34) pg MCHC 33 (32-36) gm/dL RDW Coeff of Ar 12.2 (11.5-15.5) % Plt Count 367 (140-440) K/uL Neut % (Auto) 68.4 (42.0-72.0) % Lymph % (Auto) 21.5 (20-44) % [place] % (Auto) 7.1 (0.0-11.0) % Eos % (Auto) 2.0 (0.0-7.0) % Baso % (Auto) 0.6 (0.0-3.0) % Neut # (Auto) 5.82 (1.7-7.0) K/uL Lymph # (Auto) 1.83 (0.90-2.90) K/uL [place] # (Auto) 0.60 (0.00-0.90) K/UL Eos # (Auto) 0.17 (0.00-0.50) K/uL Baso # (Auto) 0.05 (0.00-0.30) K/uL Abs Immat Gran (auto) 0.03 (0.00-0.30) K/uL Imm/Tot Granulo (auto) 0.4 % Sodium 138 (135-149) mmol/L Potassium 3.9 (3.6-5.1) mmol/L Chloride 100 (96-114) mmol/L Carbon Dioxide 24 (20-32) mmol/L Anion Gap 14 (7-15) mEq/L BUN 12 (5-24) mg/dL Creatinine 0.7 (0.5-1.5) mg/dL Estimated Creat Clear 87.03 Estimated GFR 114 ml/min Glucose 93 (60-115) mg/dL Calcium 9.8 (8.4-10.6) mg/dL Magnesium 2.1 (1.5-2.6) mg/dL Imaging Data Venous US: Attestation: I have reviewed the pertinent imaging results. Radiologist's impression: No evidence of venous thrombosis in the examined veins. Dictated by Elda Hall MD @ 08/17/2025 12:26:02 PM ECG Data Attestation: I personally reviewed and interpreted this ECG as follows: Prior ECG tracings: not available for review Interpretation: Normal sinus rhythm with a rate of 81 beats per minute, normal intervals, normal axis, no ST or T-wave abnormalities. Discharge Plan Discharge Clinical Impression: Right calf pain Patient Disposition: Home, Self-Care Condition: Stable Instructions: Leg Cramps (ED) Additional Instructions: Take Tylenol and ibuprofen for pain. Return to emergency department for new or worsening symptoms. If the lightheadedness and leg cramping persist follow-up with the primary care provider. Prescriptions: No Action zolpidem 5 mg tablet 5 mg PO HS PRN (Reason: insomnia) Qty: 90 1RF clobetasol 0.05 % cream 1 applic topical BID Qty: 60 1RF valacyclovir 1 gram tablet 1,000 mg PO BID PRN (Reason: herpes outbreak ) 7 Days Qty: 42 5RF naproxen 500 mg tablet 500 mg PO BID PRN (Reason: pain) Qty: 180 3RF lorazepam 1 mg tablet 1 mg PO HS PRN (Reason: anxiety) methylphenidate HCl [Concerta] 36 mg tablet extended release 24hr 36 mg PO DAILY escitalopram oxalate 20 mg tablet 20 mg PO DAILY oxycodone 5 mg Tablet 5 mg PO Q6H PRN (Reason: Moderate Pain) Qty: 20 0RF docusate sodium [Colace] 100 mg capsule 100 mg PO DAILY Qty: 30 0RF Follow Up/Referrals: Alexander Vasquez MD [Primary Care Provider, Family Practice] Stand Alone [facility] Info Instructions
[2025-08-17 11:22] LABS: Hematocrit* 44.2 % (33.0-51.0); Hemoglobin* 14.6 gm/dL (12.0-16.0); Immature Granulocytes Abs Auto 0.03 K/uL (0.00-0.30); Immature Granulocytes Pct Auto 0.4 %; Lymphocytes Absolute Auto 1.83 K/uL (0.90-2.90); Mean Corpuscular HGB Conc 33 gm/dL (32-36); Mean Corpuscular Hemoglobin 29 pg (26-34); Mean Corpuscular Volume 89 fL (80-100); RDW Coefficient of Variation % 12.2 % (11.5-15.5); Red Blood Count* 4.98 m/uL (4.00-5.20); White Blood Count* 8.50 K/uL (4.50-11.00)
[2025-08-17 11:30] LABS: Slide Review Reflex No
[2025-08-17 11:47] LABS: Chloride* 100 mmol/L (96-114)
[2025-08-17 11:48] LABS: Potassium* 3.9 mmol/L (3.6-5.1); Sodium* 138 mmol/L (135-149)
[2025-08-17 11:51] LABS: Anion Gap 14 mEq/L (7-15); Blood Urea Nitrogen* 12 mg/dL (5-24); Calcium* 9.8 mg/dL (8.4-10.6); Carbon Dioxide* 24 mmol/L (20-32); Creatinine* 0.7 mg/dL (0.5-1.5); Est. Creatinine Clearance* 87.03; Estimated Glomerular Filt Rate 114 ml/min; Glucose* 93 mg/dL (60-115)
[2025-08-17 12:25] VITALS: BP 127/73; PULSE 80; RESP 16; O2SAT 100
== END 2025-08-17 13:05 | disposition home or self-care (01) ==
PROVIDERS: Emergency Provider Student in an Organized Health Care Education/Training Program; PCP Family Medicine
DX: M79.661 Pain in right lower leg (principal); R42 Dizziness and giddiness; Z90.710 Acquired absence of both cervix and uterus; Z98.890 Other specified postprocedural states
CPT/HCPCS: 36415; 80048; 83735; 85025; 93005; 93971; 99283; 99284; 99285